=== PATIENT | female | born 1990 | race Hispanic/Latino ===

== ENCOUNTER 2020-08-16 16:06 | Emergency (ER) | payer OTHER, SELFPAY ==
--- NOTE | 2020-08-16 20:58 | EDPHYS ---
Physician Documentation [facility] Name: Astrid Zafar Age: 29 yrs Sex: Female : 1990 Arrival Date: 08/16/2020 Time: 16:11 Bed 13 Private MD: JAYNE Physician Meliton Barksdale HPI: 08/16 20:27 This 29 yrs old Female presents to ER via Ambulatory with complaints of IUD jmm problem. 20:27 The patient presents with pelvic pain. Onset: The symptoms/episode began/occurred jmm gradually, 1 month(s) ago. Modifying factors: The symptoms are alleviated by nothing, the symptoms are aggravated by nothing. Associated signs and symptoms: Pertinent positives: discharge, spotting, Pertinent negatives: fever. Onset: The symptoms/episode began/occurred gradually, 1 month(s) ago. Patient is 1 year post , complains of 1 month of pelvic pain, brown discharge and light spotting. Patient is concerned for infection/iud placement. . 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 - Social history:: Smoking status: unknown. ROS: 20:27 Constitutional: Negative for fever, chills, and weight loss, Cardiovascular: Negative jmm for chest pain, palpitations, and edema, Respiratory: Negative for shortness of breath, cough, wheezing, and pleuritic chest pain. 20:27 Skin: Positive for 20:27 All other systems are negative. Exam: 20:27 Constitutional: This is a well developed, well nourished patient who is awake, alert, jmm and in no acute distress. Head/Face: atraumatic. Eyes: EOMI, no conjunctival erythema appreciated ENT: Moist Mucus Membranes Neck: Trachea midline, Supple Chest/axilla: Normal chest wall appearance and motion. Cardiovascular: Regular rate and rhythm. No edema appreciated Respiratory: Normal respirations, no respiratory distress appreciated Abdomen/GI: Non distended, soft Back: Normal ROM Skin: General appearance color normal MS/ Extremity: Moves all extremities, no obvious deformities appreciated, no edema noted to the lower extremities Neuro: Awake and alert, normal gait Psych: Behavior is normal, Mood is normal, Patient is cooperative and pleasant Vital Signs: 16:27 BP 122 / 72; Pulse 70; Resp 16; Temp 97.8; Pulse Ox 100% on R/A; Pain 3/10; hb MDM: 20:09 Patient medically screened. eliseo Administered Medications: No medications were administered Disposition: 08/17 07:01 Co-signature as Attending Physician, Meliton Barksdale MD I agree with the assessment and tw4 plan of care. Disposition: 08/16/20 20:57 Patient has left against medical advice. - Patients states they are going to Home. - Condition is Stable. Signatures: Dispatcher [employer] EDMS Brijesh Skinner PA PA jmm Baxter, Heather, RN RN Meliton Carr MD MD tw4 Ab Bell RN RN ll1
--- NOTE | 2020-08-16 20:58 | ER ---
Nurse's Notes [facility] Name: Astrid Zafar Age: 29 yrs Sex: Female : 1990 Arrival Date: 08/16/2020 Time: 16:11 Bed 13 Private MD: Diagnosis: Presentation: 08/16 16:27 Chief complaint: Patient states: "I have an IUD and I am worried something is wrong, I hb have been having spotty brown discharge and sometimes red for 1 month." Also c/o pelvic and lower abdominal pain. Coronavirus screen: At this time, the client does not indicate any symptoms associated with coronavirus-19. Ebola Screen: No symptoms or risks identified at this time. Initial Sepsis Screen: Does the patient meet any 2 criteria? No. Patient's initial sepsis screen is negative. Does the patient have a suspected source of infection? No. Patient's initial sepsis screen is negative. Risk Assessment: Do you want to hurt yourself or someone else? Patient reports no desire to harm self or others. Onset of symptoms was July 2020. 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 - Social history:: Smoking status: unknown. Screenin:05 Abuse screen: Denies threats or abuse. Denies injuries from another. Nutritional aj1 screening: No deficits noted. Tuberculosis screening: No symptoms or risk factors identified. 20:55 Fall Risk None identified. ll1 Assessment: 17:44 Reassessment: Pt updated on delay in being seen by a provider. Pt does not appear to be dm5 upset at this time and states that she understands. 20:05 General: Appears in no apparent distress. comfortable, Behavior is calm, cooperative, aj1 appropriate for age. Pain: Complains of pain in right inguinal area and left inguinal area. Neuro: Level of Consciousness is awake, alert, obeys commands, Oriented to person, place, time, situation. Cardiovascular: Patient's skin is warm and dry. Respiratory: Airway is patent Respiratory effort is even, unlabored, Respiratory pattern is regular, symmetrical. GI: No signs and/or symptoms were reported involving the gastrointestinal system. : Reports discharge, from vagina that is bloody, to brown in color with clots. EENT: No signs and/or symptoms were reported regarding the EENT system. Derm: No signs and/or symptoms reported regarding the dermatologic system. Skin is pink, warm \\T\\ dry. normal. Musculoskeletal: No signs and/or symptoms reported regarding the musculoskeletal system. Circulation, motion, and sensation intact. 20:57 Reassessment: Patient and/or family updated on plan of care and expected duration. Pain ll1 level reassessed. Patient is alert, oriented x 3, equal unlabored respirations, skin warm/dry/pink. states she is ready to leave. States she doesn't believe it is an emergency, and that we are too busy. Vital Signs: 16:27 BP 122 / 72; Pulse 70; Resp 16; Temp 97.8; Pulse Ox 100% on R/A; Pain 3/10; hb ED Course: 16:11 Patient arrived in ED. mr 16:29 Triage completed. hb 16:30 Arm band placed on. hb 19:48 Brijesh Skinner PA is PHCP. [facility] 19:48 Meliton Barksdale MD is Attending Physician. [facility] 19:49 Kristen Chiu RN is Primary Nurse. aj1 20:05 Patient has correct armband on for positive identification. Bed in low position. Call aj1 light in reach. Side rails up X 1. 20:05 No provider procedures requiring assistance completed. aj1 21:23 Patient did not have IV access during this emergency room visit. ll1 Administered Medications: No medications were administered Outcome: 20:57 Patient left the ED. ll1 20:57 AMA AMA form signed ll1 20:57 Condition: stable 20:57 Discharge instructions given to patient, Instructed on leaving against medical advice. Released Dr. Braksdale/MARTIN Valdez from any ill effects of leaving against medical advice. Patient verbalized understanding of AMA instructions, No questions about AMA or AMA form before signing. Instructed to return to ER as needed. Demonstrated understanding of instructions, follow-up care. Signatures: Kristen Chiu RN RN aj1 Duyen Frost RN RN dm5 Brijesh Skinner PA PA jmm Rivera Katherine mr Ryder, Magdalena, RN RN hb Ray, Ab, RN RN ll1
[2020-08-16 21:58] VITALS: BP 122/72; TEMP 97.8; O2SAT 100
== END 2020-08-16 20:57 | disposition left against medical advice (07) ==
LOC: ER 16:06
DX: R10.2 Pelvic and perineal pain (principal)
CPT/HCPCS: 99281

== ENCOUNTER 2022-10-10 19:28 | Emergency (ER) | payer SELFPAY ==
[2022-10-10 20:32] LABS: Urine Blood 2+ (Negative); Urine Glucose Negative (Negative); Urine Protein Trace (Negative)
[2022-10-10] MEDS ORDERED: NA CHLORIDE 0.9% 1,000 ML ONE (20:46)
[2022-10-10] MEDS ORDERED: MORPHINE 4 MG/ML SYR ONE (20:46)
[2022-10-10] MEDS ORDERED: ONDANSETRON 4 MG/2 ML VIAL ONE (20:46)
[2022-10-10 20:58] LABS: Absolute Lymphocytes (CBC) 1.7 K/uL (0.7-4.9); Hematocrit 46.8 % (36.0-45.0); Lymphocytes % 9.5 % (15.3-44.8); MCV 90.3 fL (80-100); MPV 7.3 fL (7.6-11.3); RBC Red Blood Cell Count 5.18 M/uL (3.86-4.86)
[2022-10-10 21:19] LABS: Urine Bacteria <20 /HPF (<20); Urine Crystals Unidentified Few /HPF (None Seen); Urine Mucus Slight /HPF (None Seen); Urine WBC Clump Rare /HPF (None Seen)
[2022-10-10 21:25] LABS: Albumin 4.1 g/dL (3.4-5.0); Bilirubin Total 0.7 mg/dL (0.2-1.0); Potassium 3.7 mmol/L (3.5-5.1); Protein, Total 8.6 g/dL (6.4-8.2)
--- NOTE | 2022-10-10 22:42 | RAD REPORT ---
EXAM DESCRIPTION: CT - Abdomen Pelvis W Contrast - 10/10/2022 9:58 pm CLINICAL HISTORY: Abdominal pain COMPARISON: none. TECHNIQUE: Computed axial tomography of the abdomen pelvis was obtained. 100 cc Isovue-300 was admin istered intravenously. Oral contrast was not requested which limits evaluation of bowel and appendix All CT scans are performed using dose optimization technique as appropriate and may include automated exposure control or mA/KV adjustment according to patient size. FINDINGS: The liver, spleen, pancreas, adrenal and kidneys appear unremarkable. There is no evidence of diverticulitis. Retroverted uterus. IUD in place. No adnexal mass. Small to moderate umbilical hernia IMPRESSION: No acute abnormality is displayed.
[2022-10-10] MEDS ORDERED: KETOROLAC 30 MG/ML INJ ONE (23:54)
--- NOTE | 2022-10-11 02:23 | EDPHYS ---
Physician Documentation [facility] Name: Astrid Zafar Age: 31 yrs Sex: Female : 1990 Arrival Date: 10/10/2022 Time: 19:30 Bed 15 Private MD: ED Physician José Miguel Maravilla HPI: 10/10 20:10 This 31 yrs old Female presents to ER via Ambulatory with complaints of cp Abdominal Cramping. 20:10 The patient presents with abdominal pain in the left lower quadrant. cp 20:10 Onset: The symptoms/episode began/occurred 2 day(s) ago. cp 20:10 The symptoms do not radiate. Associated signs and symptoms: Pertinent negatives: cp anorexia, constipation, diarrhea, dysuria, fever, hematuria, vaginal discharge, vomiting, vaginal bleeding. The symptoms are described as crampy. Modifying factors: the symptoms are aggravated by movement. Severity of pain: in the emergency department the pain is unchanged despite home interventions. 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 - Social history:: Smoking status: Patient denies any tobacco usage or history of. Patient/guardian denies using alcohol. ROS: 20:15 Constitutional: Negative for body aches, chills, fever, poor PO intake. cp 20:15 Eyes: Negative for injury, pain, redness, and discharge. cp 20:15 Respiratory: Negative for cough, shortness of breath, wheezing. 20:15 Abdomen/GI: Positive for abdominal pain, nausea, diarrhea, of the left lower quadrant, Negative for vomiting, constipation. 20:15 Back: Negative for radiated pain. cp 20:15 : Negative for urinary symptoms, vaginal bleeding, vaginal discharge. 20:15 Neuro: Negative for altered mental status, dizziness, headache, weakness. 20:15 Skin: Negative for rash. cp 20:15 All other systems are negative. Exam: 20:20 Constitutional: The patient appears in no acute distress, alert, awake, non-toxic, well cp developed, well nourished, uncomfortable. 20:20 Head/Face: Normocephalic, atraumatic. cp 20:20 Eyes: Periorbital structures: appear normal, Conjunctiva: normal, no exudate, no injection, Sclera: no appreciated abnormality, Lids and lashes: appear normal, bilaterally. 20:20 ENT: External ear(s): are unremarkable, Nose: is normal, Mouth: Lips: moist, Oral mucosa: pink and intact, moist, Posterior pharynx: Airway: no evidence of obstruction, patent. 20:20 Chest/axilla: Inspection: normal. 20:20 Cardiovascular: Rate: normal, Rhythm: regular. 20:20 Respiratory: the patient does not display signs of respiratory distress, Respirations: normal, no use of accessory muscles, no retractions, labored breathing, is not present, Breath sounds: are clear throughout, no decreased breath sounds, no stridor, no wheezing. 20:20 Abdomen/GI: Inspection: abdomen appears normal, Bowel sounds: active, all quadrants, Palpation: soft, in all quadrants, moderate abdominal tenderness, in the left lower quadrant, rebound tenderness, is not appreciated, involuntary guarding, is not appreciated. 20:20 Back: CVA tenderness, is absent. 20:20 Skin: cellulitis, is not appreciated, no rash present. 20:20 Neuro: Orientation: to person, place \T\ time. Mentation: is normal, Motor: moves all fours, strength is normal, Sensation: is normal. 10/11 00:55 : Pelvic Exam: External exam: is normal, Speculum exam: no bleeding is noted, os that cp is closed, bimanual exam reveals no cervical motion tenderness, no adnexa tenderness or masses bilaterally, discharge, white, the nurse was present for the exam. Vital Signs: 10/10 20:25 BP 129 / 86; Pulse 79; Resp 18; Temp 98.7(O); Pulse Ox 100% on R/A; Weight 83.46 kg; ld1 Height 5 ft. 6 in. (167.64 cm); Pain 9/10; 22:15 BP 127 / 84; Pulse 67; Resp 17 S; Pulse Ox 100% on R/A; ha1 10/11 00:30 BP 126 / 91; Pulse 65; Resp 15 S; Pulse Ox 100% on R/A; vc1 01:00 BP 121 / 80; Pulse 64; Resp 16 S; Pulse Ox 100% on R/A; vc1 02:00 BP 113 / 85; Pulse 65; Resp 15 S; Pulse Ox 100% on R/A; vc1 03:02 BP 118 / 78; Pulse 67; Resp 16 S; Pulse Ox 100% on R/A; vc1 10/10 20:25 Body Mass Index 29.70 (83.46 kg, 167.64 cm) ld1 MDM: 10/10 19:42 Patient medically screened. cp 20:30 Differential diagnosis: bowel obstruction, diverticulitis, Ectopic , cp Endometriosis, gastritis, non-specific abd pain, Ovarian Torsion, Pelvic Inflammatory Disease, Pyelonephritis, Ureterolithiasis, urinary tract infection. 10/11 02:21 Data reviewed: vital signs, nurses notes, lab test result(s), radiologic studies, CT cp scan, ultrasound. 02:21 Counseling: I had a detailed discussion with the patient and/or guardian regarding: the cp historical points, exam findings, and any diagnostic results supporting the discharge/admit diagnosis, lab results, radiology results, the need for outpatient follow up, a family practitioner, an OB/Gyne specialist, to return to the emergency department if symptoms worsen or persist or if there are any questions or concerns that arise at home. Response to treatment: the patient's symptoms have markedly improved after treatment, and as a result, I will discharge patient. Special discussion: Based on the patient's Hx, exam, and Dx evaluation, there is no indication for emergent surgery or inpatient Tx. It is understood by the patient/guardian that if the Sx's persist or worsen they need to return immediately for re-evaluation. 10/10 19:58 Order name: CBC with Diff; Complete Time: 22:25 cp 10/10 22:25 Interpretation: Normal except: WBC 18.30; RBC 5.18; HGB 16.3; HCT 46.8; PLT 436; MPV cp 7.3; SKYE% 84.2; LYM% 9.5; NEUT A 15.4. 10/10 19:58 Order name: CMP; Complete Time: 22:25 cp 10/10 22:53 Interpretation: NA 134; Reviewed. cp 10/10 19:58 Order name: Lipase; Complete Time: 22:25 cp 10/10 19:58 Order name: Urine Microscopic Only; Complete Time: 22:25 cp 10/10 22:53 Interpretation: Normal except: URBC 5-10; BYST Trace. cp 10/10 20:32 Order name: Urine Dipstick-Ancillary; Complete Time: 22:25 EDMS 10/10 20:34 Order name: Urine --Ancillary (enter results); Complete Time: 22:25 mw2 10/10 19:58 Order name: CT Abd/Pelvis - IV Contrast Only; Complete Time: 22:52 cp 10/10 23:14 Order name: GC (GONORR/CHLAMYDIA) Probe cp 10/10 23:14 Order name: US Transvaginal Study (Probe) cp 10/11 01:34 Order name: Wet Prep; Complete Time: 02:19 cp 10/11 02:19 Interpretation: Reviewed. cp 10/10 19:58 Order name: IV Saline Lock; Complete Time: 20:33 cp 10/10 19:58 Order name: Labs collected and sent; Complete Time: 20:33 cp 10/10 23:14 Order name: Pelvic Exam Setup; Complete Time: 00:56 cp Administered Medications: 10/10 20:50 Drug: NS 0.9% 1000 ml Route: IV; Rate: 1 bolus; Site: left antecubital; ld1 20:50 Drug: Zofran (Ondansetron) 4 mg Route: IVP; Site: left antecubital; ld1 20:50 Drug: morphine 4 mg Route: IVP; Infused Over: 4 mins; Site: left antecubital; ld1 23:59 Drug: Ketorolac 15 mg Route: IVP; Site: right antecubital; ha1 10/11 00:30 Follow up: Response: No adverse reaction; Pain is decreased vc1 02:48 Drug: Zithromax (azithromycin) 1 grams Route: PO; vc1 03:15 Follow up: Response: No adverse reaction vc1 03:00 Drug: Rocephin (cefTRIAXone) 1 grams Route: IV; Rate: calculated rate; Site: right vc1 antecubital; 03:15 Follow up: Response: No adverse reaction; IV Status: Completed infusion; IV Intake: [id number] Disposition Summary: 10/11/22 02:22 Discharge Ordered Location: Home cp Problem: new cp Symptoms: have improved cp Condition: Stable cp Diagnosis - Lower abdominal pain, unspecified cp - Vaginitis, vulvitis and vulvovaginitis in diseases classified elsewhere cp Followup: cp - With: Private Physician - When: 1 week - Reason: Recheck today's complaints Discharge Instructions: - Discharge Summary Sheet cp - Abdominal Pain, Adult cp Forms: - Medication Reconciliation Form cp - Thank You Letter cp - Antibiotic Education cp - Prescription Opioid Use cp Prescriptions: - Doxycycline Hyclate 100 mg Oral Tablet - take 1 tablet by ORAL route every 12 hours; 20 tablet; Refills: 0, Product cp Selection Permitted - Metronidazole 500 mg Oral Tablet - take 1 tablet by ORAL route every 8 hours; 30 tablet; Refills: 0, Product cp Selection Permitted - Diclofenac Sodium 75 mg Oral tablet,delayed release (DR/EC) - take 1 tablet by ORAL route 2 times per day; 20 tablet; Refills: 0, Product cp Selection Permitted Signatures: Dispatcher [employer] EDMS José Miguel Sanchez PA PA cp Dibbern, Lauren RN RN ld1 Trinidad Harmon RN RN vc1 Nicki Beard RN RN ha1
--- NOTE | 2022-10-11 02:23 | ER ---
Nurse's Notes [facility] Name: Astrid Zafar Age: 31 yrs Sex: Female : 1990 Arrival Date: 10/10/2022 Time: 19:30 Bed 15 Private MD: Diagnosis: Lower abdominal pain, unspecified;Vaginitis, vulvitis and vulvovaginitis in diseases classified elsewhere Presentation: 10/10 20:25 Chief complaint: Patient states: ABD pain X 2 days. ld1 20:25 Coronavirus screen: At this time, the client does not indicate any symptoms associated ld1 with coronavirus-19. Ebola Screen: No symptoms or risks identified at this time. Initial Sepsis Screen: Does the patient meet any 2 criteria? No. Patient's initial sepsis screen is negative. Does the patient have a suspected source of infection? No. Patient's initial sepsis screen is negative. Risk Assessment: Do you want to hurt yourself or someone else? Patient reports no desire to harm self or others. Onset of symptoms was October 10, 2022. 20:25 Method Of Arrival: Ambulatory ld1 20:25 Acuity: GENESIS 3 ld1 Triage Assessment: 20:52 General: Appears in no apparent distress. uncomfortable, Behavior is calm, cooperative, ld1 appropriate for age. Pain: Complains of pain in abdomen Pain does not radiate. Pain currently is 9 out of 10 on a pain scale. Quality of pain is described as throbbing, Pain began 2-3 days ago. Is continuous. EENT: No signs and/or symptoms were reported regarding the EENT system. Neuro: Level of Consciousness is awake, alert, obeys commands, Oriented to person, place, time, situation. Cardiovascular: Capillary refill < 3 seconds Patient's skin is warm and dry. Respiratory: Airway is patent Respiratory effort is even, unlabored. GI: Abdomen is round non-distended, Reports lower abdominal pain, upper abdominal pain, nausea, vomiting. : No signs and/or symptoms were reported regarding the genitourinary system. Derm: No signs and/or symptoms reported regarding the dermatologic system. Musculoskeletal: No signs and/or symptoms reported regarding the musculoskeletal system. 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 - Social history:: Smoking status: Patient denies any tobacco usage or history of. Patient/guardian denies using alcohol. Screenin:53 [facility] ED Fall Risk Assessment (Adult) History of falling in the last 3 months, ld1 including since admission No falls in past 3 months (0 pts). Abuse screen: Denies threats or abuse. Denies injuries from another. Nutritional screening: No deficits noted. Tuberculosis screening: No symptoms or risk factors identified. Assessment: 20:53 Reassessment: See triage assessmen. ld1 22:00 General: Appears comfortable, Behavior is calm, cooperative. Pain: Denies pain. Neuro: ha1 Level of Consciousness is awake, alert, obeys commands, Oriented to person, place, time, situation. Cardiovascular: Patient's skin is warm and dry. Respiratory: Airway is patent Trachea midline Respiratory effort is even, unlabored, Respiratory pattern is regular, symmetrical. GI: Abdomen is flat, non-distended, Bowel sounds present X 4 quads. Abd is soft and non tender. : No signs and/or symptoms were reported regarding the genitourinary system. EENT: No deficits noted. No signs and/or symptoms were reported regarding the EENT system. Derm: Skin is pink, warm \T\ dry. Musculoskeletal: Circulation, motion, and sensation intact. Range of motion: intact in all extremities. 23:00 Reassessment: Patient and/or family updated on plan of care and expected duration. Pain vc1 level reassessed. Patient is alert, oriented x 3, equal unlabored respirations, skin warm/dry/pink. 10/11 00:00 Reassessment: Patient and/or family updated on plan of care and expected duration. Pain vc1 level reassessed. Patient is alert, oriented x 3, equal unlabored respirations, skin warm/dry/pink. 01:00 Reassessment: Patient and/or family updated on plan of care and expected duration. Pain vc1 level reassessed. Patient is alert, oriented x 3, equal unlabored respirations, skin warm/dry/pink. 02:00 Reassessment: Patient and/or family updated on plan of care and expected duration. Pain vc1 level reassessed. Patient is alert, oriented x 3, equal unlabored respirations, skin warm/dry/pink. awaiting on lab results. 03:02 Reassessment: Patient and/or family updated on plan of care and expected duration. Pain vc1 level reassessed. Patient is alert, oriented x 3, equal unlabored respirations, skin warm/dry/pink. Vital Signs: 10/10 20:25 BP 129 / 86; Pulse 79; Resp 18; Temp 98.7(O); Pulse Ox 100% on R/A; Weight 83.46 kg; ld1 Height 5 ft. 6 in. (167.64 cm); Pain 9/10; 22:15 BP 127 / 84; Pulse 67; Resp 17 S; Pulse Ox 100% on R/A; ha1 10/11 00:30 BP 126 / 91; Pulse 65; Resp 15 S; Pulse Ox 100% on R/A; vc1 01:00 BP 121 / 80; Pulse 64; Resp 16 S; Pulse Ox 100% on R/A; vc1 02:00 BP 113 / 85; Pulse 65; Resp 15 S; Pulse Ox 100% on R/A; vc1 03:02 BP 118 / 78; Pulse 67; Resp 16 S; Pulse Ox 100% on R/A; vc1 10/10 20:25 Body Mass Index 29.70 (83.46 kg, 167.64 cm) ld1 ED Course: 10/10 19:30 Patient arrived in ED. jj6 19:42 José Miguel Sanchez PA is PHCP. cp 19:42 José Miguel Maravilla MD is Attending Physician. cp 19:50 Kim Chacon RN is Primary Nurse. ld1 20:33 Urine Microscopic Only Sent. ld1 20:52 Triage completed. ld1 20:52 Arm band placed on right wrist. ld1 20:53 No provider procedures requiring assistance completed. Inserted saline lock: 20 gauge ld1 in right antecubital area, using aseptic technique. Blood collected. 20:53 Patient has correct armband on for positive identification. Placed in gown. Bed in low ld1 position. Call light in reach. Side rails up X2. Pulse ox on. NIBP on. Door closed. Noise minimized. Warm blanket given. 22:00 CT Abd/Pelvis - IV Contrast Only In Process Unspecified. EDMS 10/11 00:20 US Transvaginal Study (Probe) In Process Unspecified. EDMS 00:56 GC (GONORR/CHLAMYDIA) Probe Sent. vc1 03:16 IV discontinued, intact, bleeding controlled, No redness/swelling at site. Pressure vc1 dressing applied. Administered Medications: 10/10 20:50 Drug: NS 0.9% 1000 ml Route: IV; Rate: 1 bolus; Site: left antecubital; ld1 20:50 Drug: Zofran (Ondansetron) 4 mg Route: IVP; Site: left antecubital; ld1 20:50 Drug: morphine 4 mg Route: IVP; Infused Over: 4 mins; Site: left antecubital; ld1 23:59 Drug: Ketorolac 15 mg Route: IVP; Site: right antecubital; ha1 10/11 00:30 Follow up: Response: No adverse reaction; Pain is decreased vc1 02:48 Drug: Zithromax (azithromycin) 1 grams Route: PO; vc1 03:15 Follow up: Response: No adverse reaction vc1 03:00 Drug: Rocephin (cefTRIAXone) 1 grams Route: IV; Rate: calculated rate; Site: right vc1 antecubital; 03:15 Follow up: Response: No adverse reaction; IV Status: Completed infusion; IV Intake: [id number] Medication: 10/10 20:53 VIS not applicable for this client. ld1 Intake: 10/11 03:15 IV: 50ml; Total: 50ml. vc1 Outcome: 02:22 Discharge ordered by . hernesto 03:15 Discharged to home ambulatory. vc1 03:15 Condition: stable 03:15 Discharge instructions given to patient, Instructed on discharge instructions, follow up and referral plans. medication usage, Demonstrated understanding of instructions, follow-up care, medications, Prescriptions given X 3. 03:16 Patient left the ED. vc1 Signatures: Dispatcher [employer] EDTN José Miguel Sanchez PA PA cp Dibbern, Lauren RN RN ld1 Floridalma Call jj6 Trinidad Harmon RN RN vc1 Nicki Beard RN RN 1
[2022-10-11] MEDS ORDERED: AZITHROMYCIN 250 MG TAB ONE (02:50)
[2022-10-11] MEDS ORDERED: NA CHLORIDE 0.9% 50 ML IV ONE (02:51)
[2022-10-11] MEDS ORDERED: CEFTRIAXONE 1000 MG/VIAL ONE (02:51)
[2022-10-11 03:20] VITALS: TEMP 98.7; O2SAT 100
[2022-10-11 03:26] VITALS: BP 118/78
--- NOTE | 2022-10-11 14:58 | RAD REPORT ---
EXAM DESCRIPTION: US - Transvaginal Study Probe - 10/11/2022 12:18 am CLINICAL HISTORY: 31 years Female lower abdomen pain COMPARISON: No prior exams provided for comparison. TECHNIQUE: Real-time and connell scale transvaginal sonographic imaging was performed to evaluate the p duane. FINDINGS: The uterus measures 8.3 x 4.8 x 5.4 cm while the endometrial stripe measures 7 mm in thick ness. An intrauterine device appears to be in good position. The right ovary measures 2.8 x 3.1 x 2.5 cm while the left ovary measures 2.7 x 2.1 x 2.0 cm. Both ov marcelo contain small follicles and demonstrate normal vascularity. There is trace free fluid in the cul-de-sac. IMPRESSION: Normal pelvic ultrasound. No ovarian mass or torsion. Intrauterine device in good position. Trace free fluid in the cul-de-sac likely physiologic. Electronically signed by: Doretha Cortez MD 10/11/2022 12:39 AM [employer] Due to temporary technical issues with the PACS/Fluency reporting system, reports are being signed by the in house radiologists without review as a courtesy to insure prompt reporting. The interpreting radiologist is fully responsible for the content of the report.
[2022-10-13 21:26] LABS: C.trachomatis RNA,TMA Not Detected (Not Detected)
== END 2022-10-11 03:16 | disposition home or self-care (01) ==
LOC: ER 19:28
DX: N77.1 Vaginitis, vulvitis and vulvovaginitis in diseases classified elsewhere (principal)
CPT/HCPCS: 36415; 74177; 76830; 80053; 81003; 81015; 81025; 83690; 85025; 87210; 87490; 87590; 99284; J2405; J7030; Q0144; Q9967

== ENCOUNTER 2022-11-22 03:30 | Emergency (ER) | payer SELFPAY ==
--- OUTSIDE RECORDS SUMMARY | 2022-11-22 03:34 | XMS REPORT | Continuity of Care Document ---
:1990 Author Organization [facility] t Address [address] [place] [address] Care Team Providers Name Role Phone Sherrie Alegria Primary Care Physician SHERRIE AGUILAR Attending Clinician Unavailable Sherrie Alegria Attending Clinician [phone] Doctor Unassigned, [place] Attending Clinician Unavailable Tiff Castillo RN Attending Clinician Unavailable NETTIE HARMAN Attending Clinician Unavailable Ezequiel DOLL Attending Clinician Unavailable Ezequiel Ortiz Attending Clinician TERESSA MOSES Attending Clinician Unavailable [facility] Attending Clinician Unavailable Teressa Cruz Attending Clinician Nettie German Attending Clinician Lab, [place] Attending Clinician Unavailable Payers Payer Name Policy Type Policy Number Effective Date Expiration Date Sourav albright [facility] [id number] 2020 00:00:00 Problems Condition Condition Condition Status Onset Resolution Last Treating Co mments Source Name Details Category Date Date Treatment Clinician Date Other Other Disease Active 2021-10 Univers general general 2-09 [place] of [place] advice 00 Me dical for for Branch contracept contracept carmen carmen management management Papanicola Papanicola Disease Active Overview : Univers ou smear ou smear 8-11 Formattin ity of of cervix of cervix 00:00: g of [place] with low with low 00 note Medica l grade grade might be Branch squamous squamous different intraepith intraepith from the julianna levine original. 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 Encounter Encounter Disease Active Uni vers for IUD for IUD 04-29 ity of removal removal 00:00: [place] 00 Medical Branch Dysuria Dysuria Disease Active Univers 04-29 ity of 00:00: [place] 00 Medical Branch IUD IUD Disease Active Univers (intrauter (intrauter 04-29 it y of ine ine 00:00: [place] device) in device) in [address] Branch Encounter Encounter Disease Active Uni vers for for 04-29 ity of surveillan surve[place] ce of ce of Medical other other Branch contracept contracept carmen carmen IUD IUD Disease Active Univers (intrauter (intrauter 04-29 it y of ine ine 00:00: [place] device) in device) in [address] Branch Allergies, Adverse Reactions, Alerts Allergy Allergy Status Severity Reaction(s) Onset Inactive Treating Comm ents Source Name Type Date Date Clinician NO KNOWN Drug Active Univers ALLERGIE Class ity of S [facility] Social History Social Habit Start Date Stop Date Quantity Comments Source History [facility] o f Alcohol Frequency [facility] edical Branch History [facility] o f Alcohol Std [place] Medical Drinks Branch History [facility] o f Alcohol Binge [place] Medic al Branch Exposure to 2022-10-21 2022-10-31 Not sure University of SARS-CoV-2 00:00:00 10:40:00 [facility] (event) Branch Tobacco use and 2022-09-16 2022-09-16 Smokeless tobacco Un iversity of exposure 00:00:00 00:00:00 non-user [facility] Alcohol intake 2022-09-16 2022-09-16 Current drinker Unive rsity of 00:00:00 00:00:00 of alcohol [facility] (finding) Branch Tobacco Comment 2022-09-16 2022-09-16 vapes Universit y of 00:00:00 00:00:00 [facility] Alcohol Comment 2021-04-29 2021-04-29 occasional Universit y of 00:00:00 00:00:00 [facility] Sex Ass[birth year] At [birth year] Universit y of 00:00:00 00:00:00 [facility] Smoking Status Start Date Stop Date Source Never smoked tobacco [facility] Medications Ordered Filled Start Stop Current Ordering Indication Dosage Frequency Signature Comments Components Source Medication Medication Date Date Medication? Clinician (SIG) Name Name etonogestre 2022- No [id number] 68mg Univers L 10-31 ity of (NEXPLANON) 22:30: 21:44 [place] implant 68 00 :00 Medical mg Branch etonogestre 2022- No [id number] 68mg 68 mg, Univers L 10-31 Subdermal, ity of (NEXPLANON) 22:30: 21:44 ONCE NOW, [place] implant 68 00 :00 1 dose, On Med ical mg [facility] 10/31/22 at 1630, Routine
Use approved by: PRODUCTION BROACHER etonogestre 2022- No [id number] 68mg Univers L 10-31 ity of (NEXPLANON) 22:30: 21:44 [place] implant 68 00 :00 Medical mg Branch etonogestre 2022- No [id number] 68mg 68 mg, Univers L 10-31 Subdermal, ity of (NEXPLANON) 22:30: 21:44 ONCE NOW, [place] implant 68 00 :00 1 dose, On Med ical mg [facility] 10/31/22 at 1630, Routine
Use approved by: PRODUCTION BROACHER No known No No known Unive rs medications 10-31 medication it y of 15:46: s [address] No known No No known Unive rs medications 10-31 medication it y of 15:46: s [address] No known No No known Unive rs medications 10-17 medication it y of 09:06: s [address] No known 0 No No known Unive rs medications 10-17 medication it y of 09:06: s [address] No known 0 No No known Unive rs medications 1-09 medication it y of 09:06: [address] No known No No known Unive rs medications 1-09 medication it y of 09:06: [address] No known 2021-10 No No known Unive rs medications 2-09 medication it y of 14:15: [address] No known 2021- No No known Unive rs medications 2-09 medication it y of 14:15: [address] No known 2021-10 No No known Unive rs medications 2-09 medication it y of 14:15: [address] No known 2021-10 No No known Unive rs medications 2-09 medication it y of 14:15: [address] ketorolac 2021- No 15mg 15 mg, Unive rs (TORADOL) 03-09 Intramuscu ity of injection 03:15: 02:23 lar, ONCE, [place] 15 mg 00 :00 1 dose, On [facility] Branch 03/08/22 at 2215, IGNACIO
Fa culty member approving Restricted medication : Ezequiel DOLL ibuprofen Yes [id number] 600mg Take 1 Univers 600 mg 5-31 tablet by ity of tablet 00:00: mouth [place] 00 every 6 Medical (six) Branch hours as needed for Pain (scale 4-6). ibuprofen Yes [id number] 600mg Take 1 Univers 600 mg 5-31 tablet by ity of tablet 00:00: mouth [place] 00 every 6 Medical (six) Branch hours as needed for Pain (scale 4-6). ibuprofen 2021- No [id number] 600mg Take 1 Univers 600 mg 5-31 12-09 tablet by ity of tablet 00:00: 00:00 mouth [place] 00 :00 every 6 Medical (six) Branch hours as needed for Pain (scale 4-6). ibuprofen 2021- No [id number] 600mg Take 1 Univers 600 mg 5-31 12-09 tablet by ity of tablet 00:00: 00:00 mouth [place] 00 :00 every 6 Medical (six) Branch hours as needed for Pain (scale 4-6). ibuprofen 2021- No [id number] 600mg Take 1 Univers 600 mg 5-31 12- tablet by ity of tablet 00:00: 00:00 mouth [place] 00 :00 every 6 Medical (six) Branch hours as needed for Pain (scale 4-6). ampicillin 2020- No [id number] 500mg Take 1 Univers 500 mg 05-31 capsule by ity of capsule 00:00: 04:59 mouth [place] 00 :00 every 6 Medical (six) Branch hours for 10 days. ampicillin 2020- No [id number] 500mg Take 1 Univers 500 mg 05-31 capsule by ity of capsule 00:00: 04:59 mouth [place] 00 :00 every 6 Medical (six) Branch hours for 10 days. ampicillin 2020- No [id number] 500mg Take 1 Univers 500 mg 05-31 capsule by ity of capsule 00:00: 04:59 mouth [place] 00 :00 every 6 Medical (six) Branch hours for 10 days. terconazole Yes [id number] 1{appli Insert 1 Univers 0.8 % 8-11 cator} Applicator ity of vaginal 00:00: into [place] cream 00 vagina at Medical bedtime. Branch terconazole 2020- Yes [id number] 1{appli Insert 1 Univers 0.8 % 8-11 cator} Applicator ity of vaginal 00:00: into [place] cream 00 vagina at Medical bedtime. Branch terconazole 2020- Yes [id number] 1{appli Insert 1 Univers 0.8 % 8-11 cator} Applicator ity of vaginal 00:00: into [place] cream 00 vagina at Medical bedtime. Branch terconazole 2020-0 Yes [id number] 1{appli Insert 1 Univers 0.8 % 8-11 cator} Applicator ity of vaginal 00:00: into [place] cream 00 vagina at Medical bedtime. Branch terconazole 2020-0 Yes [id number] 1{appli Insert 1 Univers 0.8 % 8-11 cator} Applicator ity of vaginal 00:00: into [place] cream 00 vagina at Medical bedtime. Branch terconazole 2020-0 Yes [id number] 1{appli Insert 1 Univers 0.8 % 8-11 cator} Applicator ity of vaginal 00:00: into [place] cream 00 vagina at Medical bedtime. Branch terconazole Yes [id number] 1{appli Insert 1 Univers 0.8 % 8-11 cator} Applicator ity of vaginal 00:00: into [place] cream 00 vagina at Medical bedtime. Branch terconazole Yes [id number] 1{appli Insert 1 Univers 0.8 % 8-11 cator} Applicator ity of vaginal 00:00: into [place] cream 00 vagina at Medical bedtime. Branch terconazole Yes [id number] 1{appli Insert 1 Univers 0.8 % 8-11 cator} Applicator ity of vaginal 00:00: into [place] cream 00 vagina at Medical bedtime. Branch terconazole Yes [id number] 1{appli Insert 1 Univers 0.8 % 8-11 cator} Applicator ity of vaginal 00:00: into [place] cream 00 vagina at Medical bedtime. Branch terconazole Yes [id number] 1{appli Insert 1 Univers 0.8 % 8-11 cator} Applicator ity of vaginal 00:00: into [place] cream 00 vagina at Medical bedtime. Branch terconazole Yes [id number] 1{appli Insert 1 Univers 0.8 % 8-11 cator} Applicator ity of vaginal 00:00: into [place] cream 00 vagina at Medical bedtime. Branch terconazole Yes [id number] 1{appli Insert 1 Univers 0.8 % 8-11 cator} Applicator ity of vaginal 00:00: into [place] cream 00 vagina at Medical bedtime. Branch terconazole Yes [id number] 1{appli Insert 1 Univers 0.8 % 8-11 cator} Applicator ity of vaginal 00:00: into [place] cream 00 vagina at Medical bedtime. Branch terconazole 2020-2021- No [id number] 1{appli Insert 1 Univers 0.8 % 8-11 12-09 cator} Applicator ity o f vaginal 00:00: 00:00 into [place] cream 00 :00 vagina at Medical bedtime. Branch terconazole 2020-2021- No [id number] 1{appli Insert 1 Univers 0.8 % 8-11 12-09 cator} Applicator ity o f vaginal 00:00: 00:00 into [place] cream 00 :00 vagina at Medical bedtime. Branch terconazole 2021- No [id number] 1{appli Insert 1 Univers 0.8 % 05-19 cator} Applicator ity o f vaginal 00:00: 00:00 into [place] cream 00 :00 vagina at Medical bedtime. Branch No known No [facility] No known No Univers medications [facility] Vital Signs Vital Name Observation Time Observation Value Comments Source Systolic blood 2022-10-31 16:40:00 119 mm[Hg] Univer sity of [facility] Diastolic blood 2022-10-31 16:40:00 81 mm[Hg] Unive rsity of [facility] Heart rate 2022-10-31 16:40:00 76 /min Universi ty [facility] Body temperature 2022-10-31 16:40:00 36.67 [facility]y [facility] Respiratory rate 2022-10-31 16:40:00 18 /min Univ ersity [facility] Body weight 2022-10-31 16:40:00 63.504 kg Universi ty [facility] BMI 2022-10-31 16:40:00 26.45 kg/m2 Universi ty [facility] Systolic blood 2022-10-17 14:51:00 119 mm[Hg] Univer sity of [facility] Diastolic blood 2022-10-17 14:51:00 71 mm[Hg] Unive rsity of [facility] Heart rate 2022-10-17 14:51:00 89 /min Universi ty [facility] Body temperature 2022-10-17 14:51:00 37.17 Rosy Univ ersity [facility] Respiratory rate 2022-10-17 14:51:00 20 /min Univ ersity [facility] Body height 2022-10-17 14:51:00 154.9 cm Universi ty [facility] Body weight 2022-10-17 14:51:00 63.64 kg Universi ty [facility] BMI 2022-10-17 14:51:00 26.51 kg/m2 Universi ty of [place] [facility] Systolic blood 2022-09-16 20:01:00 133 mm[Hg] Univer sity of pressure [place] [facility] Diastolic blood 2022-09-16 20:01:00 84 mm[Hg] Unive rsity of pressure [place] [facility] Heart rate 2022-09-16 20:01:00 81 /min Universi ty of [place] [facility] Body temperature 2022-09-16 20:01:00 36.72 Rosy Univ ersity of [place] [facility] Respiratory rate 2022-09-16 20:01:00 18 /min Univ ersity of [place] [facility] Body height 2022-09-16 20:01:00 154.9 cm Universi ty of [place] [facility] Body weight 2022-09-16 20:01:00 64.581 kg Universi ty of [place] [facility] BMI 2022-09-16 20:01:00 26.90 kg/m2 Universi ty of [place] [facility] Systolic blood 2022-03-09 02:27:24 127 mm[Hg] Univer sity of pressure [place] [facility] Diastolic blood 2022-03-09 02:27:24 90 mm[Hg] Unive rsity of pressure [place] [facility] Heart rate 2022-03-09 02:27:24 85 /min Universi ty of [place] [facility] Body temperature 2022-03-09 02:27:24 36.83 Rosy Univ ersity of [place] [facility] Respiratory rate 2022-03-09 02:27:24 18 /min Univ ersity of [place] [facility] Body height 2022-03-09 01:27:00 154.9 cm Universi ty of [place] [facility] Body weight 2022-03-09 01:27:00 64.864 kg Universi ty of [place] [facility] BMI 2022-03-09 01:27:00 27.02 kg/m2 Universi ty of [place] [facility] Oxygen saturation in 2022-03-09 01:27:00 100 /min University Arterial blood by [facility] Pulse oximetry Branch Systolic blood 2022-03-09 00:51:00 119 mm[Hg] Univer sity of pressure [place] [facility] Diastolic blood 2022-03-09 00:51:00 77 mm[Hg] Unive rsity of pressure [place] [facility] Heart rate 2022-03-09 00:51:00 82 /min Universi ty of [place] [facility] Body temperature 2022-03-09 00:51:[address] [facility] ersity [facility] Respiratory rate 2022-03-09 00:51:00 19 /min Univ ersity of [facility] Body height 2022-03-09 00:51:00 154.9 cm Universi ty of [facility] Body weight 2022-03-09 00:51:00 64.864 kg Universi ty of [facility] BMI 2022-03-09 00:51:00 27.02 kg/m2 Universi ty of [facility] Oxygen saturation in 2022-03-09 00:51:00 100 /min [facility] Arterial blood by [facility] Pulse oximetry Branch Systolic blood 2021-04-29 12:59:00 108 mm[Hg] Univer sity of [facility] Diastolic blood 2021-04-29 12:59:00 73 mm[Hg] Unive [facility] of [facility] Heart rate 2021-04-29 12:59:00 80 /min Universi ty of [facility] Body temperature 2021-04-29 12:59:[address] [facility] ersity [facility] Respiratory rate 2021-04-29 12:59:00 16 /min [facility] ersity of [facility] Body height 2021-04-29 12:59:00 157.5 cm Universi ty of [facility] Body weight 2021-04-29 12:59:00 60.963 kg Universi ty of [facility] BMI 2021-04-29 12:59:00 24.58 kg/m2 Universi ty of [facility] Procedures Procedure Date / Time Performed Performing Clinician [facility] e DISCLOSURE AND CONSENT 2022-10-31 06:01:00 Doctor Unassigned, No University [facility] MEDICAL & SURGICAL Name Medical [facility] h PROCEDURES - FEMALM ASSIGNMENT OF BENEFITS 2022-09-16 19:50:12 Doctor Unassigned, No [facility] Encounters Start End Encounter Admission Attending Care Care Encounter Source Date/Time Date/Time Type Type Clinicians Facility Department ID 2022-11-25 2022-11-25 Outpatient R LAUREN, [facility] [id number] [facility] 13:30:00 13:30:00 SHERRIE keenan [facility] 2022-11-18 2022-11-18 Telephone [place], [facility] 1.2.840.114 [id number] Univers 00:00:00 00:00:00 Sherrie C [employer]ODUCTION BROACHER [id number] ity of [facility] [id number] Hernán as MATERNAL [phone] [facility] & CHILD [address] [place] [address] 2022-11-15 2022-11-15 [facility] [id number] Univers 13:15:00 13:15:00 SHERRIE avila o [facility] 2022-11-10 2022-11-10 Telephone [facility] [id number] Univers 00:00:00 00:00:00 Sherrie C [employer]ODUCTION BROACHER [id number] ity of [facility] [id number] Hernán as MATERNAL [id number] [address] 2022-11-02 2022-11-02 Telephone [facility] [id number] Univers 00:00:00 00:00:00 Sherrie PRODUCTION BROACHER [id number] ity of [facility] [id number] Hernán as MATERNAL [id number] [address] 2022-10-31 2022-10-31 Office [facility] [id number] Univers 15:00:00 15:00:00 Visit Sherrie C [employer]ODUCTION BROACHER [id number] ity of [facility] [id number] Hernán as MATERNAL [id number] [facility] & CHILD [address] [place] [address] 2022-10-31 2022-10-31 [facility] [id number] Univers 15:00:00 10:56:14 SHERRIE mcclure shlomo [facility] 2022-10-31 2022-10-31 Orders Doctor SOARES 1.2.840.114 [id number] Univers 00:00:00 00:00:00 Only Unassigned, LYNETTE [id number] ity of [place] [id number] Hernán as [id number] [facility] [address] 2022-10-21 2022-10-21 Telephone [facility] [id number] Univers 00:00:00 00:00:00 Sherrie Val [employer] [id number] ity of [facility] [id number] Hernán as MATERNAL [id number] [facility] & CHILD [address] [place] [address] 2022-10-21 2022-10-21 Nurse Benjamin SOARES [id number] [id number] Univers 00:00:00 00:00:00 Triage dTiff [id number] ity of [place] [id number] Hernán as [phone] [facility] [address] 2022-10-17 2022-10-17 [facility] [id number] Univers 08:30:00 09:03:45 SHERRIE avila o f [facility] 2022-10-17 2022-10-17 Office [facility] [id number] Univers 08:30:00 09:03:45 Visit Sherrie Neal [employer] [id number] ity of [place] [id number] Hernán as MATERNAL [id number] [facility] & [address] 2022-10-17 2022-10-17 Outpatient R LAUREN, [facility] [id number] Univers 08:30:00 08:30:00 SHERRIE ity o f [facility] 2022-10-13 2022-10-13 Telephone [facility] [id number] [id number] Univers 00:00:00 00:00:00 Sherrie Val [employer] BRO[employer]ER [id number] ity of [place] [id number] Hernán as MATERNAL [id number] [facility] & CHILD [address] [place] [address] 2022-10-12 2022-10-12 Telephone [facility] 1.2.840.114 [id number] Univers 00:00:00 00:00:00 Sherrie C PRODUCTION BROACHER [id number] ity of [facility] [id number] Hernán as MATERNAL [id number] [facility] & CHILD [address] [place] [address] 2022-10-11 2022-10-11 Telephone [facility] 1.2.840.114 [id number] Univers 00:00:00 00:00:00 Sherrie C PRODUCTION BROACHER [id number] ity of [facility] [id number] Hernán as MATERNAL [id number] [facility] & CHILD [address] [place] [address] 2022-09-20 2022-09-20 Telephone [facility] 1.2.840.114 [id number] Univers 00:00:00 00:00:00 Sherrie C PRODUCTION BROACHER [id number] ity of [facility] [id number] Hernán as MATERNAL [id number] [address] 2022-09-16 2022-09-16 [facility] [id number] [facility] 13:45:00 14:59:34 SHERRIE keenan [facility] 2022-09-16 2022-09-16 Office [facility] [id number] [facility] 13:45:00 14:59:34 Visit [facility] PRODUCTION BROACHER [id number] ity of [facility] [id number] Hernán as MATERNAL [id number] [facility] CHILD [address] [place] [address] 2022-09-16 2022-09-16 Orders Doctor SOARES 1.2.840.114 [id number] Univers 00:00:00 00:00:00 Only Unassigned, LYNETTE [id number] [place] [facility] [id number] Hernán as [id number] [address] 2022-08-08 2022-08-08 Outpatient R KIMANI [facility] [id number] Univers 09:00:00 09:00:00 NETTIE keenan [facility] 2022-03-08 2022-03-08 Emergency X Ezequiel DOLL [facility] ERT [id number] Univers 20:30:00 21:37:00 ity of [facility] 2022-03-08 2022-03-08 Emergency Ezequiel Doll [facility] 1.2.840.114 [id number] Univers 20:30:00 21:37:00 Janna CRANDALL [id number] i ty of [place] [id number] [place] [facility] [id number] [address] 2022-03-08 2022-03-08 Outpatient R AURELIA [facility] [id number] Univers 19:15:00 19:50:45 TERESSA keenan [facility] 2022-03-08 2022-03-08 Nurse Nurse, Jhon[facility] 1.2.840.114 [id number] Univers 19:15:00 19:50:45 [facility] [id number] ity [facility] [id number] Hernán as CHERYL?BLEA [id number] [address] MEDICAL OFFICE BUILDING 2021-10-15 2021-10-15 Telephone [facility] [id number] Univers 00:00:00 00:00:00 Rostheronnda R PRODUCTION BROACHER [id number] ity of [facility] [id number] Hernán as MATERNAL [id number] Med ical & CHILD [address] [place] [address] 2021-05-31 2021-05-31 Telephone [facility] [id number] Univers 00:00:00 00:00:00 Roshunda R [employer]ODUCTION BROACHER [id number] ity of [facility] [id number] Hernán as MATERNAL [id number] [facility] ical & CHILD [address] [place] [address] 2021-05-31 2021-05-31 Telephone [facility] [id number] Univers 00:00:00 00:00:00 Roshunda R [employer]ODUCTION BROACHER [id number] ity of [facility] [id number] Hernán as MATERNAL [id number] [facility] CHILD [address] [place] [address] 2021-05-25 2021-05-25 Remanufacturing Technician Lab, Ang[facility] 1.2.840. [id number] [facility] 13:07:25 14:08:05 Visit HarmanNettie [employer]ODUCTION BROACHER [id number] ity of [facility] [id number] Hernán as MATERNAL [id number] [facility] & CHILD [address] [place] [address] 2021-05-25 2021-05-25 Outpatient R KIMANI [facility] [id number] Univers 13:00:00 13:00:00 NETTIE ity o f [facility] 2021-05-24 2021-05-24 [facility] [id number] Univers 00:00:00 00:00:00 Nettie R PRODUCTION BROACHER [id number] ity of [facility] [id number] Hernán as MATERNAL [id number] [facility] CHILD [address] [place] [address] 2021-05-19 2021-05-19 [facility]phone [facility] [id number] Univers 00:00:00 00:00:00 Nettie R PRODUCTION BROACHER [id number] ity of [facility] [id number] Hernán as MATERNAL [phone] [facility] & CHILD [address] [place] [address] 2021-05-03 2021-05-03 [facility] [id number] Univers 00:00:00 00:00:00 Haleyyanicka R [employer]ODUCTION BROACHER [id number] ity of [facility] [id number] Hernán as MATERNAL [phone] [facility] & CHILD [address] [place] [address] 2021-04-29 2021-04-29 Office [facility] 1.2.840.114 [id number] Univers 07:52:14 08:34:41 Visit Nettie R [employer]ODUCTION BROACHER [id number] ity of [facility] [id number] Hernán as MATERNAL [phone] [facility] ical & CHILD [address] [place] [address] 2021-04-29 2021-04-29 Outpatient R KIMANI [facility] [id number] [employer] 07:45:00 07:45:00 NETTIE keenan [facility] Results This patient has no known results.
[2022-11-22] MEDS ORDERED: LIDOCAINE VISCOUS 2% SOLN 15 ML UDC ONE (04:00)
--- NOTE | 2022-11-22 04:47 | ER ---
Nurse's Notes [facility] Name: Astrid Zafar Age: 32 yrs Sex: Female : 1990 Arrival Date: 11/22/2022 Time: 03:32 Bed 12 Private MD: Diagnosis: Foreign body in right ear-insect partial removal Presentation: 11/22 03:44 Chief complaint: Patient states: right ear pain reports bowling in [place] poured alcohol in kl ear with some relief. Coronavirus screen: Vaccine status: Patient reports being unvaccinated. Ebola Screen: Patient negative for fever greater than or equal to 101.5 degrees Fahrenheit, and additional compatible Ebola Virus Disease symptoms. Initial Sepsis Screen: Does the patient meet any 2 criteria? No. Patient's initial sepsis screen is negative. Does the patient have a suspected source of infection? No. Patient's initial sepsis screen is negative. Risk Assessment: Do you want to hurt yourself or someone else? Patient reports no desire to harm self or others. 03:44 Method Of Arrival: Ambulatory kl 03:44 Acuity: GENESIS 4 kl 05:03 Onset of symptoms was November 22, 2022 at 03:00. Triage Assessment: 03:47 General: Appears uncomfortable, Behavior is calm, cooperative. Pain: Complains of pain kl in right ear. 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 - Social history:: Smoking status: Reported history of juuling and/or vaping. Screenin:49 [facility] ED Fall Risk Assessment (Adult) History of falling in the last 3 months, including since admission No falls in past 3 months (0 pts) Confusion or Disorientation No (0 pts) Intoxicated or Sedated No (0 pts) Impaired Gait No (0 pts) Mobility Assist Device Used No (0 pt) Altered Elimination No (0 pt) Score/Fall Risk Level 0 - 2 = Low Risk Oriented to surroundings, Maintained a safe environment. Abuse screen: Denies threats or abuse. Nutritional screening: No deficits noted. Tuberculosis screening: No symptoms or risk factors identified. Assessment: 03:49 Reassessment: see triage note. Vital Signs: 03:44 BP 112 / 81; Pulse 89; Resp 15; Temp 97.8(TE); Pulse Ox 100% ; Weight 65.77 kg (R); Height 5 ft. 2 in. (157.48 cm); Pain 0/10; 05:03 BP 135 / 66; Pulse 69; Resp 15; kl 03:44 Body Mass Index 26.52 (65.77 kg, 157.48 cm) ED Course: 03:32 Patient arrived in ED. [email or web address] 03:35 José Miguel Maravilla MD is Attending Physician. [facility] 03:46 Triage completed. 04:41 FB removal. Patient did not have IV access during this emergency room visit. 04:47 Migdalia Pichardo MD is Referral Physician. [facility] 05:03 Arm band placed on right wrist. 05:04 Patient has correct armband on for positive identification. Administered Medications: 04:30 Drug: Viscous Lidocaine Liquid (4 %) 5 ml {Note: administered by Val Maravilla MD.} Route: Mucous Membrane; Medication: 03:50 VIS not applicable for this client. Outcome: 04:47 Discharge ordered by . [facility] 05:03 Discharged to home ambulatory. 05:03 Condition: stable 05:03 Discharge instructions given to patient, Instructed on discharge instructions, follow up and referral plans. Demonstrated understanding of instructions, follow-up care. 05:04 Patient left the ED. Signatures: Jihan Bell RN RN kl Anderson, Corey, MD MD cha Jeffries, Jennifer [email or web address]
--- NOTE | 2022-11-22 04:47 | EDPHYS ---
Physician Documentation [facility] Name: Astrid Zafar Age: 32 yrs Sex: Female : 1990 Arrival Date: 11/22/2022 Time: 03:32 Bed 12 Private MD: ED Physician José Miguel Maravilla HPI: 11/22 04:03 This 32 yrs old Female presents to ER via Ambulatory with complaints of jordana Foreign Body In Ear. 04:03 The patient presents with a foreign body sensation, presumably from an insect. The jordana complaints affect the right ear. Onset: The symptoms/episode began/occurred just prior to arrival. Modifying factors: The symptoms are alleviated by nothing, the symptoms are aggravated by nothing. Severity of symptoms: At their worst the symptoms were mild in the emergency department the symptoms are unchanged. The patient has not experienced similar symptoms in the past. 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 - Social history:: Smoking status: Reported history of juuling and/or vaping. ROS: 04:04 Constitutional: Negative for fever, chills, and weight loss, Eyes: Negative for injury, jordana pain, redness, and discharge, Neck: Negative for injury, pain, and swelling, Cardiovascular: Negative for chest pain, palpitations, and edema, Respiratory: Negative for shortness of breath, cough, wheezing, and pleuritic chest pain, Abdomen/GI: Negative for abdominal pain, nausea, vomiting, diarrhea, and constipation, Back: Negative for injury and pain, : Negative for injury, bleeding, discharge, and swelling, MS/Extremity: Negative for injury and deformity, Skin: Negative for injury, rash, and discoloration, Neuro: Negative for headache, weakness, numbness, tingling, and seizure, Psych: Negative for depression, anxiety, suicide ideation, homicidal ideation, and hallucinations, Allergy/Immunology: Negative for hives, rash, and allergies, Endocrine: Negative for neck swelling, polydipsia, polyuria, polyphagia, and marked weight changes, Hematologic/Lymphatic: Negative for swollen nodes, abnormal bleeding, and unusual bruising. 04:04 ENT: Positive for ear pain, foreign body sensation. Exam: 04:04 Constitutional: This is a well developed, well nourished patient who is awake, alert, jordana and in no acute distress. Head/Face: Normocephalic, atraumatic. Eyes: Pupils equal round and reactive to light, extra-ocular motions intact. Lids and lashes normal. Conjunctiva and sclera are non-icteric and not injected. Cornea within normal limits. Periorbital areas with no swelling, redness, or edema. Neck: Trachea midline, no thyromegaly or masses palpated, and no cervical lymphadenopathy. Supple, full range of motion without nuchal rigidity, or vertebral point tenderness. No Meningismus. Chest/axilla: Normal chest wall appearance and motion. Nontender with no deformity. No lesions are appreciated. Cardiovascular: Regular rate and rhythm with a normal S1 and S2. No gallops, murmurs, or rubs. Normal PMI, no JVD. No pulse deficits. Respiratory: Lungs have equal breath sounds bilaterally, clear to auscultation and percussion. No rales, rhonchi or wheezes noted. No increased work of breathing, no retractions or nasal flaring. Abdomen/GI: Soft, non-tender, with normal bowel sounds. No distension or tympany. No guarding or rebound. No evidence of tenderness throughout. Back: No spinal tenderness. No costovertebral tenderness. Full range of motion. Skin: Warm, dry with normal turgor. Normal color with no rashes, no lesions, and no evidence of cellulitis. MS/ Extremity: Pulses equal, no cyanosis. Neurovascular intact. Full, normal range of motion. Neuro: Awake and alert, GCS 15, oriented to person, place, time, and situation. Cranial nerves II-XII grossly intact. Motor strength 5/5 in all extremities. Sensory grossly intact. Cerebellar exam normal. Normal gait. Psych: Awake, alert, with orientation to person, place and time. Behavior, mood, and affect are within normal limits. 04:04 ENT: Ear canal(s): foreign body, an insect, TM's: no acute changes, Examination of the other ear shows no obvious abnormality, normal, Nose: is normal, no acute changes, Posterior pharynx: is normal, no acute changes. Vital Signs: 03:44 BP 112 / 81; Pulse 89; Resp 15; Temp 97.8(TE); Pulse Ox 100% ; Weight 65.77 kg (R); kl Height 5 ft. 2 in. (157.48 cm); Pain 0/10; 05:03 BP 135 / 66; Pulse 69; Resp 15; kl 03:44 Body Mass Index 26.52 (65.77 kg, 157.48 cm) Procedures: 04:45 Foreign Body Removal: an insect, from the right ear canal, by using alligator clamps, jordana lidocaine lavage, normal saline irrigation, Dressing: none, The patient tolerated the removal well, partial removal. MDM: 03:35 Patient medically screened. [facility] 04:06 Differential diagnosis: foreign body. Data reviewed: vital signs, nurses notes. jordana Consideration of Admission/Observation Escalation of care including admission/observation considered. I considered the following discharge prescriptions or medication management in the emergency department Medications were administered in the Emergency Department. See MAR. Test considered but Not performed: Labs: cbc, comp met not done. Care significantly affected by the following chronic conditions: none. 04:46 Management of patient was discussed with the following: Customs Entry Clerk: dr rodriguez, will jordana see in am office. 11/22 04:12 Order name: Lissette. Order: irrigate right ear; Complete Time: 04:41 [facility] Administered Medications: 04:30 Drug: Viscous Lidocaine Liquid (4 %) 5 ml {Note: administered by Val Maravilla MD.} Route: kl Mucous Membrane; Disposition Summary: 11/22/22 04:47 Discharge Ordered Location: Home jordana Problem: new jordana Symptoms: have improved jordana Condition: Stable jordana Diagnosis - Foreign body in right ear - insect partial removal(11/22/22 04:47) jordana Followup: jordana - With: Private Physician - When: 1 - 2 days - Reason: Recheck today's complaints, Continuance of care, Re-evaluation by your physician Followup: jordana - With: - When: 2 - 3 days - Reason: Recheck today's complaints, Re-evaluation by your physician Discharge Instructions: - Discharge Summary Sheet jordana - Ear Foreign Body jordana - Ear Foreign Body, [id number] jordana Forms: - Medication Reconciliation Form jordana - Thank You Letter jordana - Antibiotic Education jordana - Prescription Opioid Use jordana Signatures: Jihan Bell RN RN kl Anderson, Corey, MD MD cha Corrections: (The following items were deleted from the chart) 04:47 04:47 Foreign body in right ear - insect jordana silveira
[2022-11-22 05:23] VITALS: BP 112/81; TEMP 97.8; O2SAT 100
== END 2022-11-22 05:04 | disposition home or self-care (01) ==
LOC: ER 03:30
PROC: 09C3XZZ Extirpation of Matter from Right External Auditory Canal, External Approach (ICD-10-PCS; principal; 2022-11-22)
DX: T16.1XXA Foreign body in right ear, initial encounter (principal)

== ENCOUNTER 2023-08-25 18:18 | Emergency (ER) | payer SELFPAY ==
--- OUTSIDE RECORDS SUMMARY | 2023-08-25 18:22 | XMS REPORT | Continuity of Care Document ---
:1990 Author Organization [facility] t Address [address] [place] [address] Care Team Providers Name Role Phone Sherrie Alegria Primary Care Physician [phone] CANDICE DE GUZMAN Attending Clinician Unavailable Sherrie Alegria Attending Clinician [phone] Horacio SUTTON, Carmelo Ortiz Attending Clinician Unavailable Doctor Unassigned, [place] Attending Clinician Unavailable Candice De Guzman CNM Attending Clinician SKYLA SCHUMACHER Attending Clinician Unavailable Provider, Daxa Temp Attending Clinician Unavailable Skyla Schumacher NP Attending Clinician SHERRIE AGUILAR Attending Clinician Unavailable Anna SUTTON, Tiff Muñoz Attending Clinician Unavailable NETTIE HARMAN Attending Clinician Unavailable Ezequiel DOLL Attending Clinician Unavailable Ezequiel Ortiz Attending Clinician TERESSA MOSES Attending Clinician Unavailable Nurse, [facility] Attending Clinician Unavailable Teressa Cruz Attending Clinician Nettie German Attending Clinician Daxa Dunlap Attending Clinician Unavailable Payers Payer Name Policy Type Policy Number Effective Date Expiration Date S ource Problems Condition Condition Condition Status Onset Resolution Last Treating Co mments Source Name Details Category Date Date Treatment Clinician Date Nexplanon Nexplanon Disease Active 2023-[address] in place 4-25 ity of 00:00: [place] 00 Medical Branch Other Other Disease Active 2021-10 Univers general general 2-09 ity of counseling [place] advice 00 [place] for for Branch contracept contracept carmen carmen management management Papanicola Papanicola Disease Active Overview : Univers ou smear ou smear 8-11 Formattin ity of of cervix of cervix 00:00: g of this [place] with low with low 00 note Medica l grade grade might be Branch squamous squamous different intraepith intraepith from the elial elial original. 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 Well woman Well woman Disease Active U nivers exam exam - ity of 00:00: [place] 00 Medical Branch Dysuria Dysuria Disease Active Univers - ity of 00:00: [place] 00 Medical Branch IUD IUD Disease Active Univers (intrauter (intrauter - it y of ine ine 00:00: [place] device) in device) in [address] Branch Encounter Encounter Disease Active Uni vers for for 7 ity of surveillan surve[place]an [place] ce of ce of Medical other other Branch contracept contracept carmen carmen IUD IUD Disease Active Univers (intrauter (intrauter - it y of ine ine 00:00: [place] device) in device) in [address] Branch Allergies, Adverse Reactions, Alerts Allergy Allergy Status Severity Reaction(s) Onset Inactive Treating Comm ents Source Name Type Date Date Clinician NO KNOWN Drug Active Univers ALLERGIE Class ity of S [facility] Social History Social Habit Start Date Stop Date Quantity Comments Source Gender identity Universit y of [facility] Sexual orientation Univer sity of [facility] History [facility] o f Alcohol Frequency [facility] edical Branch History [facility] o f Alcohol Std Drinks [place] [facility] History [facility] o f Alcohol Binge [place] [facility] Alcohol intake 2023-06-29 2023-06-29 Current drinker Unive rsity of 00:00:00 00:00:00 of alcohol [place] Medical (finding) Branch History of Social 2023-06-19 2023-06-19 Univers ity of function 00:00:00 00:00:00 [facility] Exposure to 2023-01-21 2023-01-31 Not sure University SARS-CoV-2 (event) 00:00:00 09:44:00 [facility] Tobacco use and 2022-09-16 2022-09-16 Smokeless tobacco Un iversity of exposure 00:00:00 00:00:00 non-user [facility] Tobacco Comment 2022-09-16 2022-09-16 vapes Universit y of 00:00:00 00:00:00 [facility] Alcohol Comment 2021-04-29 2021-04-29 occasional Universit y of 00:00:00 00:00:00 [facility] Sex Assigned At [birth year] Universit y of 00:00:00 00:00:00 [facility] Smoking Status Start Date Stop Date Source Never smoked tobacco [facility] Medications Ordered Filled Start Stop Current Ordering Indication Dosage Frequency Signature Comments Components Source Medication Medication Date Date Medication? Clinician (SIG) Name [facility] Yes [id number] 1{each} Insert 1 Univers 0.12-0.015 9-21 Each into ity of mg/24 hr 00:00: vagina [place] vaginal 00 once every Medica l insert month. Branch Insert vaginally and leave in place for 3 consecutiv e weeks, then remove for 1 week. NUVARING Yes [id number] 1{each} Insert 1 Univers 0.12-0.015 9-21 Each into ity of mg/24 hr 00:00: vagina [place] vaginal 00 once every Medica l insert month. Branch Insert vaginally and leave in place for 3 consecutiv e weeks, then remove for 1 week. NUVARING Yes [id number] 1{each} Insert 1 Univers 0.12-0.015 9-21 Each into ity of mg/24 hr 00:00: vagina [place] vaginal 00 once every Medica l insert month. Branch Insert vaginally and leave in place for 3 consecutiv e weeks, then remove for 1 week. NUVARING Yes [id number] 1{each} Insert 1 Univers 0.12-0.015 9-21 Each into ity of mg/24 hr 00:00: vagina [place] vaginal 00 once every Medica l insert month. Branch Insert vaginally and leave in place for 3 consecutiv e weeks, then remove for 1 week. NUVARING Yes [id number] 1{each} Insert 1 Univers 0.12-0.015 9-21 Each into ity of mg/24 hr 00:00: vagina [place] vaginal 00 once every Medica l insert month. Branch Insert vaginally and leave in place for 3 consecutiv e weeks, then remove for 1 week. NUVARING Yes [id number] 1{each} Insert 1 Univers 0.12-0.015 9-21 Each into ity of mg/24 hr 00:00: vagina [place] vaginal 00 once every Medica l insert month. Branch Insert vaginally and leave in place for 3 consecutiv e weeks, then remove for 1 week. NUVARING Yes [id number] 1{each} Insert 1 Univers 0.12-0.015 9-21 Each into ity of mg/24 hr 00:00: vagina [place] vaginal 00 once every Medica l insert month. Branch Insert vaginally and leave in place for 3 consecutiv e weeks, then remove for 1 week. NUVARING Yes [id number] 1{each} Insert 1 Univers 0.12-0.015 9-21 Each into ity of mg/24 hr 00:00: vagina [place] vaginal 00 once every Medica l insert month. Branch Insert vaginally and leave in place for 3 consecutiv e weeks, then remove for 1 week. fluconazole 2022- Yes [id number] 150mg Take 1 Univers 150 mg 9-08 17-16 tablet by ity of tablet 00:00: 04:59 mouth [place] 00 :00 every 72 Medical (seventy-t Branch wo) hours for 2 doses. fluconazole 2022- Yes [id number] 150mg Take 1 Univers 150 mg 9-11 -16 tablet by ity of tablet 00:00: 04:59 mouth [place] 00 :00 every 72 Medical (seventy-t Branch wo) hours for 2 doses. etonogestre 2022- No [id number] 68mg Univers L 10-31 ity of (NEXPLANON) 22:30: 21:44 [place] implant 68 00 :00 Medical mg Branch etonogestre 2022- No [id number] 68mg 68 mg, Univers L 10-31 Subdermal, ity of (NEXPLANON) 22:30: 21:44 ONCE NOW, [place] implant 68 00 :00 1 dose, On Med ical mg [facility] 10/31/22 at 1630, Routine
Use approved by: RESIDENT CARE DIRECTOR etonogestre 2022- No [id number] 68mg Univers L 10-31 ity of (NEXPLANON) 22:30: 21:44 [place] implant 68 00 :00 Medical mg Branch etonogestre 2022- No [id number] 68mg 68 mg, Univers L 10-31 Subdermal, ity of (NEXPLANON) 22:30: 21:44 ONCE NOW, [place] implant 68 00 :00 1 dose, On Med ical mg [facility] 10/31/22 at 1630, Routine
Use approved by: RESIDENT CARE DIRECTOR No known 2022-0 No No known Unive rs medications - medication it y of 15:46: [address] No known 2022-0 No No known Unive rs medications - medication it y of 15:46: [address] No known 2022-0 No No known Unive rs medications - medication it y of 09:06: [address] No known 2022-0 No No known Unive rs medications -09 medication it y of 09:06: [address] No known 2022-0 No No known Unive rs medications -09 medication it y of 09:06: [address] No known 2022-0 No No known Unive rs medications 1-09 medication it y of 09:06: [address] No known 2021- No No known Unive rs medications 2-09 medication it y of 14:15: [address] No known 2021-1 No No known Unive rs medications 2-09 medication it y of 14:15: [address] No known 2021- No No known Unive rs medications 2-09 medication it y of 14:15: [address] No known 2021-10 No No known Unive rs medications 2-09 medication it y of 14:15: s [place] 13 Medical Branch ketorolac 2021- No 15mg 15 mg, Unive rs (TORADOL) 03-09 Intramuscu ity of injection 03:15: 02:23 lar, ONCE, [place] 15 mg 00 :00 1 dose, On Medical Tue Branch 03/08/22 at 2215, IGNACIO
Fa culty member approving Restricted medication : Ezequiel DOLL ibuprofen Yes [id number] 600mg Take 1 Univers 600 mg 5-31 tablet by ity of tablet 00:00: mouth [place] 00 every 6 Medical (six) Branch hours as needed for Pain (scale 4-6). ibuprofen Yes [id number] 600mg Take 1 Univers 600 mg 5-31 tablet by ity of tablet 00:00: mouth [place] 00 every 6 Medical (six) Branch hours as needed for Pain (scale 4-6). ibuprofen 2021- No [id number] 600mg Take 1 Univers 600 mg 5-31 - tablet by ity of tablet 00:00: 00:00 mouth [place] 00 :00 every 6 Medical (six) Branch hours as needed for Pain (scale 4-6). ibuprofen 2021- No [id number] 600mg Take 1 Univers 600 mg 5-31 - tablet by ity of tablet 00:00: 00:00 mouth [place] 00 :00 every 6 Medical (six) Branch hours as needed for Pain (scale 4-6). ibuprofen 2021- No [id number] 600mg Take 1 Univers 600 mg 5-31 - tablet by ity of tablet 00:00: 00:00 mouth [place] 00 :00 every 6 Medical (six) Branch hours as needed for Pain (scale 4-6). ampicillin 2020- No [id number] 500mg Take 1 Univers 500 mg 05-31 capsule by ity of capsule 00:00: 04:59 mouth [place] 00 :00 every 6 Medical (six) Branch hours for 10 days. ampicillin 2020-2020- No [id number] 500mg Take 1 Univers 500 mg 05-31 capsule by ity of capsule 00:00: 04:59 mouth [place] 00 :00 every 6 Medical (six) Branch hours for 10 days. ampicillin 2020- No [id number] 500mg Take 1 Univers 500 mg 05-31 capsule by ity of capsule 00:00: 04:59 mouth [place] 00 :00 every 6 Medical (six) Branch hours for 10 days. terconazole 0 Yes [id number] 1{appli Insert 1 Univers 0.8 % 8-11 cator} Applicator ity of vaginal 00:00: into [place] cream 00 vagina at Medical bedtime. Branch terconazole Yes [id number] 1{appli Insert 1 Univers 0.8 % 8-11 cator} Applicator ity of vaginal 00:00: into [place] cream 00 vagina at Medical bedtime. Branch terconazole Yes [id number] 1{appli Insert 1 Univers 0.8 % 8-11 cator} Applicator ity of vaginal 00:00: into [place] cream 00 vagina at Medical bedtime. [place] terconazole Yes [id number] 1{appli Insert 1 Univers 0.8 % 8-11 cator} Applicator ity of vaginal 00:00: into [place] cream 00 vagina at Medical bedtime. [place] terconazole Yes [id number] 1{appli Insert 1 Univers 0.8 % 8-11 cator} Applicator ity of vaginal 00:00: into [place] cream 00 vagina at Medical bedtime. [place] terconazole Yes [id number] 1{appli Insert 1 Univers 0.8 % 8-11 cator} Applicator ity of vaginal 00:00: into [place] cream 00 vagina at Medical bedtime. Branch terconazole Yes [id number] 1{appli Insert 1 Univers 0.8 % 8-11 cator} Applicator ity of vaginal 00:00: into [place] cream 00 vagina at Medical bedtime. Branch terconazole Yes [id number] 1{appli Insert 1 Univers 0.8 % 8-11 cator} Applicator ity of vaginal 00:00: into [place] cream 00 vagina at Medical bedtime. Branch terconazole Yes [id number] 1{appli Insert 1 Univers 0.8 % 8-11 cator} Applicator ity of vaginal 00:00: into [place] cream 00 vagina at Medical bedtime. [place] terconazole Yes [id number] 1{appli Insert 1 Univers 0.8 % 8-11 cator} Applicator ity of vaginal 00:00: into [place] cream 00 vagina at Medical bedtime. [place] terconazole Yes [id number] 1{appli Insert 1 Univers 0.8 % 8-11 cator} Applicator ity of vaginal 00:00: into [place] cream 00 vagina at Medical bedtime. [place] terconazole Yes [id number] 1{appli Insert 1 Univers 0.8 % 8-11 cator} Applicator ity of vaginal 00:00: into [place] cream 00 vagina at Medical bedtime. [place] terconazole Yes [id number] 1{appli Insert 1 Univers 0.8 % 8-11 cator} Applicator ity of vaginal 00:00: into [place] cream 00 vagina at Medical bedtime. [place] terconazole Yes [id number] 1{appli Insert 1 Univers 0.8 % 8-11 cator} Applicator ity of vaginal 00:00: into [place] cream 00 vagina at Medical bedtime. [place] terconazole 2021- No [id number] 1{appli Insert 1 Univers 0.8 % 05-19 cator} Applicator ity o f vaginal 00:00: 00:00 into [place] cream 00 :00 vagina at Medical bedtime. [place] terconazole 202- No [id number] 1{appli Insert 1 Univers 0.8 % 05-19 cator} Applicator ity o f vaginal 00:00: 00:00 into [place] cream 00 :00 vagina at Medical bedtime. [place] terconazole 202- No [id number] 1{appli Insert 1 Univers 0.8 % 05-19 cator} Applicator ity o f vaginal 00:00: 00:00 into [place] cream 00 :00 vagina at Medical bedtime. [place] No known No Univers medications [facility] No known [facility] Univers medications [facility] Vital Signs Vital Name Observation Time Observation Value Comments Source Systolic blood 2023-06-29 16:09:00 123 mm[Hg] Univer sity of pressure [place] [facility] Diastolic blood 2023-06-29 16:09:00 79 mm[Hg] Unive rsity of pressure [place] [facility] Heart rate 2023-06-29 16:09:00 89 /min Universi ty of [place] [facility] Body temperature 2023-06-29 16:09:00 35.94 Rosy Univ ersity of [place] [facility] Respiratory rate 2023-06-29 16:09:00 18 /min Univ ersity of [place] [facility] Body height 2023-06-29 16:09:00 154.9 cm Universi ty of [place] [facility] Body weight 2023-06-29 16:09:00 66.31 kg Universi ty of [place] [facility] BMI 2023-06-29 16:09:00 27.62 kg/m2 Universi ty of [place] [facility] Systolic blood 2023-06-19 14:45:00 113 mm[Hg] Univer sity of pressure [place] [facility] Diastolic blood 2023-06-19 14:45:00 77 mm[Hg] Unive rsity of pressure [place] [facility] Heart rate 2023-06-19 14:45:00 83 /min Universi ty of [place] [facility] Body temperature 2023-06-19 14:45:00 36.11 Rosy Univ ersity of [place] [facility] Respiratory rate 2023-06-19 14:45:00 18 /min Univ ersity of [place] [facility] Body height 2023-06-19 14:45:00 154.9 cm Universi ty of [place] [facility] Body weight 2023-06-19 14:45:00 67.274 kg Universi ty of [place] [facility] BMI 2023-06-19 14:45:00 28.02 kg/m2 Universi ty of [place] [facility] Systolic blood 2023-01-31 14:45:00 118 mm[Hg] Univer sity of pressure [place] [facility] Diastolic blood 2023-01-31 14:45:00 80 mm[Hg] Unive rsity of pressure [place] [facility] Heart rate 2023-01-31 14:45:00 83 /min Universi ty of [place] [facility] Body temperature 2023-01-31 14:45:00 36.28 Rosy Univ ersity of [place] [facility] Respiratory rate 2023-01-31 14:45:00 18 /min Univ ersity of [place] [facility] Body height 2023-01-31 14:45:00 154.9 cm Universi ty of [place] [facility] Body weight 2023-01-31 14:45:00 64.774 kg Universi ty of [place] [facility] BMI 2023-01-31 14:45:00 26.98 kg/m2 Universi ty of [place] [facility] Systolic blood 2022-10-31 16:40:00 119 mm[Hg] Univer sity of pressure [place] [facility] Diastolic blood 2022-10-31 16:40:00 81 mm[Hg] Unive rsity of pressure [place] [facility] Heart rate 2022-10-31 16:40:00 76 /min Universi ty of [place] [facility] Body temperature 2022-10-31 16:40:00 36.67 Rosy Univ ersity of [place] [facility] Respiratory rate 2022-10-31 16:40:00 18 /min Univ ersity of [place] [facility] Body weight 2022-10-31 16:40:00 63.504 kg Universi ty of [place] [facility] BMI 2022-10-31 16:40:00 26.45 kg/m2 Universi ty of [place] [facility] Systolic blood 2022-10-17 14:51:00 119 mm[Hg] Univer sity of pressure [place] [facility] Diastolic blood 2022-10-17 14:51:00 71 mm[Hg] Unive rsity of pressure [place] [facility] Heart rate 2022-10-17 14:51:00 89 /min Universi ty of [place] [facility] Body temperature 2022-10-17 14:51:00 37.17 Rosy Univ ersity of [place] [facility] Respiratory rate 2022-10-17 14:51:00 20 /min Univ ersity of [place] [facility] Body height 2022-10-17 14:51:00 154.9 cm Universi ty of [place] [facility] Body weight 2022-10-17 14:51:00 63.64 kg Universi ty of [place] [facility] BMI 2022-10-17 14:51:00 26.51 kg/m2 Universi ty of [place] [facility] Systolic blood 2022-09-16 20:01:00 133 mm[Hg] Univer sity of pressure [place] [facility] Diastolic blood 2022-09-16 20:01:00 84 mm[Hg] Unive rsity of pressure [place] [facility] Heart rate 2022-09-16 20:01:00 81 /min Universi ty of [place] [facility] Body temperature 2022-09-16 20:01:00 36.72 Rosy Univ ersity of [place] [facility] Respiratory rate 2022-09-16 20:01:00 18 /min Univ ersity of [place] [facility] Body height 2022-09-16 20:01:00 154.9 cm Universi ty of [place] [facility] Body weight 2022-09-16 20:01:00 64.581 kg Universi ty of [place] [facility] BMI 2022-09-16 20:01:00 26.90 kg/m2 Universi ty of [place] [facility] Systolic blood 2022-03-09 02:27:24 127 mm[Hg] Univer sity of pressure [place] [facility] Diastolic blood 2022-03-09 02:27:24 90 mm[Hg] Unive rsity of pressure [place] [facility] Heart rate 2022-03-09 02:27:24 85 /min Universi ty of [place] [facility] Body temperature 2022-03-09 02:27:24 36.83 Rosy Univ ersity of [place] [facility] Respiratory rate 2022-03-09 02:27:24 18 /min Univ ersity of [place] [facility] Body height 2022-03-09 01:27:00 154.9 cm Universi ty of [place] [facility] Body weight 2022-03-09 01:27:00 64.864 kg Universi ty of [place] [facility] BMI 2022-03-09 01:27:00 27.02 kg/m2 Universi ty of [place] [facility] Oxygen saturation in 2022-03-09 01:27:00 100 /min University Arterial blood by [facility] Pulse oximetry Branch Systolic blood 2022-03-09 00:51:00 119 mm[Hg] Univer sity of pressure [place] [facility] Diastolic blood 2022-03-09 00:51:00 77 mm[Hg] Unive rsity of pressure [place] [facility] Heart rate 2022-03-09 00:51:00 82 /min Universi ty of [place] [facility] [place] Body temperature 2022-03-09 00:51:00 36.89 Rosy Univ ersity of [facility] Respiratory rate 2022-03-09 00:51:00 19 /min Univ ersity of [place] [facility] Body height 2022-03-09 00:51:00 154.9 cm Universi ty of [place] [facility] [place] Body weight 2022-03-09 00:51:00 64.864 kg Universi ty of [place] [facility] [place] BMI 2022-03-09 00:51:00 27.02 kg/m2 Universi [facility] Oxygen saturation in 2022-03-09 00:51:00 100 /min [facility] blood by [facility] Pulse oximetry Branch Systolic blood 2021-04-29 12:59:00 108 mm[Hg] Univer sity of [facility] Diastolic blood 2021-04-29 12:59:00 73 mm[Hg] Unive rsity of [facility] Heart rate 2021-04-29 12:59:00 80 /min Universi ty [facility] Body temperature 2021-04-29 12:59:00 37.06 Rosy [facility] rate 2021-04-29 12:59:00 16 /min [facility] Body height 2021-04-29 12:59:00 157.5 cm Universi ty [facility] Medical [place] Body weight 2021-04-29 12:59:00 60.963 kg Universi ty [facility] BMI 2021-04-29 12:59:00 24.58 kg/m2 [facility] Procedures Procedure Date / Time Performed Performing Clinician Sour e DISCLOSURE AND 2023-06-30 05:01:00 Doctor Unassigned, No [facility] CONSENT, MEDICAL AND Name Medical [facility] SURGICAL PROCEDURES [facility] PATIENT FINANCIAL 2023-01-31 14:32:57 Doctor Unassigned, No [facility] POLICY [facility] Branch DISCLOSURE AND CONSENT 2022-10-31 06:01:00 Doctor Unassigned, No [facility] MEDICAL & SURGICAL Name Medical [facility] h PROCEDURES - FEMALM ASSIGNMENT OF BENEFITS 2022-09-16 19:50:12 Doctor Unassigned, No [facility] Encounters Start End Encounter Admission Attending Care Care Encounter Source Date/Time Date/Time Type Type Clinicians Facility Department ID 2023-08-25 2023-08-25 Telephone [facility] [id number] [facility] 00:00:00 00:00:00 Sherrie C RESIDENT CARE DIRECTOR [id number] [facility] [id number] Hernán as MATERNAL [id number] [facility] & CHILD [address] [place] [address] 2023-08-24 2023-08-24 Refill [facility] [id number] Univers 00:00:00 00:00:00 Sherrie C RESIDENT CARE DIRECTOR [id number] [facility] [id number] Hernán as MATERNAL [id number] [facility] & CHILD [address] [place] [address] 2023-08-02 2023-08-02 Telephone [facility] [id number] Univers 00:00:00 00:00:00 Sherrie C RESIDENT CARE DIRECTOR [id number] [facility] [id number] Hernán as MATERNAL [id number] [address] 2023-07-29 2023-07-29 Nurse FANY Leonard [id number] Univers 00:00:00 00:00:00 Triage Carmelo OJEDA [id number] ity of [facility] [id number] Hernán as [id number] [facility] 019 [place] 2023-06-30 2023-06-30 Orders Doctor FANY [id number] Univers 00:00:00 00:00:00 Only Unassigned, LYNETTE [id number] ity of [place] [facility] [id number] Hernán as [id number] [facility] 009 [place] 2023-06-29 2023-06-29 Outpatient R GEGE [facility] [id number] Univers 10:45:00 12:02:38 CANDICE itsupriya [facility] 2023-06-29 2023-06-29 Office Gege [facility] [id number] Univers 10:45:00 12:02:38 Visit Candice Tucker RESIDENT CARE DIRECTOR [id number] i ty of [place] [id number] Hernán as MATERNAL [id number] Med ical & CHILD [address] [place] [address] 2023-06-19 2023-06-19 Outpatient R VINCENT [facility] [id number] Univers 09:15:00 15:04:25 SKYLA ity [facility] 2023-06-19 2023-06-19 Office Provider, Daxa Harrison [facility] [id number] Univers 09:15:00 15:04:25 Visit Skyla Schumacher RESIDENT CARE DIRECTOR [id number] [facility] [id number] Hernán as MATERNAL [id number] Med ical & CHILD [address] [place] [address] 2023-05-11 2023-05-11 Telephone Vicente [facility] [id number] Univers 00:00:00 00:00:00 Sherrie Neal RESIDENT CARE DIRECTOR [id number] ity of [place] [id number] Hernán as MATERNAL [id number] Med ical & CHILD [address] [place] [address] 2023-01-31 2023-01-31 Outpatient R VICENTE [facility] [id number] Univers 10:00:00 10:06:26 SHERRIE keenan [facility] 2023-01-31 2023-01-31 Office Vicente [facility] [id number] Univers 10:00:00 10:06:26 Visit Sherrie Neal RESIDENT CARE DIRECTOR [id number] ity of [place] [id number] Hernán as MATERNAL [id number] Med ical & CHILD [address] [place] [address] 2023-01-31 2023-01-31 Outpatient R VICENTE [facility] [id number] Univers 10:00:00 10:00:00 SHERRIE keenan [facility] 2023-01-31 2023-01-31 Orders Doctor SOARES [id number] Univers 00:00:00 00:00:00 Only Unassigned, LYNETTE [id number] ity of [place] [facility] [id number] Hernán as [id number] [address] 2022-12-21 2022-12-21 Outpatient R VICENTE, [facility] [id number] Univers 13:15:00 13:15:00 SHERRIE avila o shlomo [facility] 2022-11-25 2022-11-25 Outpatient R VICENTE, [facility] [id number] Univers 13:30:00 13:30:00 SHERRIE avila o shlomo [facility] 2022-11-25 2022-11-25 Outpatient R GEGE, [facility] [id number] Univers 08:00:00 08:00:00 CANDICE ity [facility] 2022-11-18 2022-11-18 [facility] 1.2.840.114 [id number] Univers 00:00:00 00:00:00 Sherrie C RESIDENT CARE DIRECTOR [id number] ity of [place] [id number] Hernán as MATERNAL [phone] [facility] ical & CHILD [address] [place] [address] 2022-11-15 2022-11-15 Outpatient R VICENTE, [facility] [id number] Univers 13:15:00 13:15:00 SHERRIE keenan [facility] 2022-11-10 2022-11-10 [facility]phone [facility] 1.2.840.114 [id number] Univers 00:00:00 00:00:00 Sherrie C RESIDENT CARE DIRECTOR [id number] [facility] [id number] Hernán as MATERNAL [id number] [facility] ical & CHILD [address] [place] [address] 2022-11-02 2022-11-02 [facility] [id number] Univers 00:00:00 00:00:00 Sherrie C RESIDENT CARE DIRECTOR [id number] [facility] [id number] Hernán as MATERNAL [phone] [facility] ical & CHILD [address] [place] [address] 2022-10-31 2022-10-31 Office [facility] [id number] Univers 15:00:00 15:00:00 Visit Sherrie Neal RESIDENT CARE DIRECTOR [id number] [facility] [id number] Hernán as MATERNAL [phone] [facility] & [address] 2022-10-31 2022-10-[address] [facility] [id number] Univers 15:00:00 10:56:14 SHERRIE mcclure f [facility] 2022-10-31 2022-10-31 Orders Doctor FANY 1.2.840.114 [id number] Univers 00:00:00 00:00:00 Only Unassigned, LYNETTE [id number] ity of [place] [facility] [id number] Hernán as [phone] [address] 2022-10-21 2022-10-21 Telephone [facility] 1.2.840.114 [id number] Univers 00:00:00 00:00:00 Sherrie Neal RESIDENT CARE DIRECTOR [id number] [facility] [id number] Hernán as MATERNAL [phone] [address] 2022-10-21 2022-10-21 Nurse Benjamin SOARES [id number] Univers 00:00:00 00:00:00 Triage dTiff [id number] ity of [facility] [id number] Hernán as [phone] [facility] [address] [place] 2022-10-17 2022-10-[address] [facility] [id number] Univers 08:30:00 09:03:45 SHERRIE keenan [facility] 2022-10-17 2022-10-17 Office [facility] [id number] Univers 08:30:00 09:03:45 Visit Sherrie Neal RESIDENT CARE DIRECTOR [id number] [facility] [id number] Hernán as MATERNAL [phone] Med ical & CHILD [address] [place] [address] 2022-10-17 2022-10-17 Outpatient R VICENTE [facility] [id number] Univers 08:30:00 08:30:00 SHERRIE avila o f [facility] 2022-10-13 2022-10-13 Telephone [facility] 1.2.840.114 [id number] Univers 00:00:00 00:00:00 Sherrie C RESIDENT CARE DIRECTOR [id number] ity of [facility] [id number] Hernán as MATERNAL [phone] [facility] & [facility] [address] [place] [address] 2022-10-12 2022-10-12 Telephone [facility] 1.2.840.114 [id number] Univers 00:00:00 00:00:00 Sherrie C RESIDENT CARE DIRECTOR [id number] ity of [facility] [id number] Hernán as MATERNAL [id number] [facility] & CHILD [address] [place] [address] 2022-10-11 2022-10-11 Telephone [facility] 1.2.840.114 [id number] Univers 00:00:00 00:00:00 Sherrie C RESIDENT CARE DIRECTOR [id number] ity of [facility] [id number] Hernán as MATERNAL [phone] [facility] & CHILD [address] [place] [address] 2022-09-20 2022-09-20 Telephone [facility] 1.2.840.114 [id number] Univers 00:00:00 00:00:00 Sherrie C RESIDENT CARE DIRECTOR [id number] ity of [facility] [id number] Hernán as MATERNAL [id number] [facility] & CHILD [address] [place] [address] 2022-09-16 2022-09-16 Outpatient R VICENTE [facility] [id number] Univers 13:45:00 14:59:34 SHERRIE mcclure f [facility] 2022-09-16 2022-09-16 Office [facility] [id number] Univers 13:45:00 14:59:34 Visit Sherrie C RESIDENT CARE DIRECTOR [id number] [facility] [id number] Hernán as MATERNAL [phone] Med ical & CHILD [address] [place] [address] 2022-09-16 2022-09-16 Orders Doctor FANY 1.2.840.114 [id number] Univers 00:00:00 00:00:00 Only Unassigned, LYNETTE [id number] ity of [place] [facility] [id number] Hernán as [phone] [facility] 009 [place] 2022-08-08 2022-08-08 Outpatient R KIMANI [facility] [id number] Univers 09:00:00 09:00:00 NETTIE avila o f [facility] 2022-03-08 2022-03-08 Emergency X Ezequiel DOLL [facility] ERT [id number] Univers 20:30:00 21:37:00 ity of [facility] 2022-03-08 2022-03-08 Emergency Ezequiel Doll [facility] 1.2.840.114 [id number] Univers 20:30:00 21:37:00 Janna ARLINGTON [id number] [facility] [id number] [place] [facility] [id number] [facility] 084 [place] 2022-03-08 2022-03-08 Outpatient R AURELIA [facility] [id number] Univers 19:15:00 19:50:45 TERESSA avila o shlomo [facility] 2022-03-08 2022-03-08 Nurse Nurse, [facility] 1.2.840.114 [id number] Univers 19:15:00 19:50:45 [facility] [id number] ity [facility] [id number] Hernán as CHERYL?BLEA [phone] Ok judith [address] MEDICAL OFFICE BUILDING 2021-10-15 2021-10-15 Telephone Kimani [facility] [id number] Univers 00:00:00 00:00:00 Nettie Hernandez RESIDENT CARE DIRECTOR [id number] ity [facility] [id number] Hernán as MATERNAL [phone] [facility] & CHILD [address] [place] [address] 2021-05-31 2021-05-31 [facility]phone [facility] [id number] Univers 00:00:00 00:00:00 Constantina R RESIDENT CARE DIRECTOR [id number] ity of [facility] [id number] Hernán as MATERNAL [phone] [facility] & CHILD [address] [place] [address] 2021-05-31 2021-05-31 [place] [facility] [id number] Univers 00:00:00 00:00:00 Kiannda R RESIDENT CARE DIRECTOR [id number] [facility] [id number] Hernán as MATERNAL [phone] [facility] & [address] 2021-05-25 2021-05-25 [employer] [facility], [facility] 1.2.840. 114 [id number] Univers 13:07:25 14:08:05 Visit HarmanNettie RESIDENT CARE DIRECTOR [id number] [facility] [id number] Hernán as MATERNAL [phone] [address] 2021-05-25 2021-05-25 Outpatient R KIMANI [facility] [id number] Univers 13:00:00 13:00:00 KIANNDGarrett ity o f [facility] 2021-05-24 2021-05-24 [facility]phone [facility] [id number] Univers 00:00:00 00:00:00 Constantina R RESIDENT CARE DIRECTOR [id number] ity of [facility] [id number] Hernán as MATERNAL [id number] [facility] & CHILD [address] [place] [address] 2021-05-19 2021-05-19 [facility]phone [facility] [id number] Univers 00:00:00 00:00:00 Constantina R RESIDENT CARE DIRECTOR [id number] ity of [facility] [id number] Hernán as MATERNAL [phone] [facility] & CHILD [address] [place] [address] 2021-05-03 2021-05-03 [facility]phone [facility] [id number] Univers 00:00:00 00:00:00 Nettie Hernandez RESIDENT CARE DIRECTOR [id number] ity of [facility] [id number] Hernán as MATERNAL [id number] [facility] & [address] 2021-04-29 2021-04-29 [facility] 1.2.840.114 [id number] Univers 07:52:14 08:34:41 Visit Nettie Hernandez RESIDENT CARE DIRECTOR [id number] ity of [facility] [id number] Hernán as MATERNAL [id number] [facility] & [address] 2021-04-29 2021-04-29 Outpatient R KIMANI [facility] [id number] Univers 07:45:00 07:45:00 NETTIE keenan [facility] Results This patient has no known results.
[2023-08-25 19:17] LABS: Absolute Lymphocytes (CBC) 2.2 K/uL (0.7-4.9); Hematocrit 45.3 % (36.0-45.0); Lymphocytes % 23.7 % (15.3-44.8); MCV 90.6 fL (80-100); MPV 7.4 fL (7.6-11.3); Platelets 368 thou/uL (152-406)
[2023-08-25 19:19] LABS: Specific Gravity 1.014 (1.005-1.030)
[2023-08-25 19:20] LABS: Specific Gravity 1.014 (1.005-1.030); Urine Bacteria <20 /HPF (<20); Urine Bilirubin NEGATIVE (Negative); Urine Blood 1+ (Negative); Urine Clarity Clear (Clear); Urine Color Colorless (Yellow); Urine Crystals Unidentified Few /HPF (None Seen); Urine Glucose NEGATIVE (Negative); Urine Protein NEGATIVE (Negative); Urine RBC <5 /HPF (None Seen); Urine Urobilinogen Normal (Normal); Urine WBC Clump Rare /HPF (None Seen)
[2023-08-25 19:33] LABS: Albumin 3.3 g/dL (3.4-5.0); Bilirubin Total 0.2 mg/dL (0.2-1.0); Potassium 3.5 mEq/L (3.5-5.1); Protein, Total 7.7 g/dL (6.4-8.2)
[2023-08-25 19:42] LABS: SARS-CoV-2 Antigen Rapid Res Negative (Negative)
--- NOTE | 2023-08-25 19:46 | RAD REPORT ---
EXAM DESCRIPTION: CT - Head Brain Wo Cont - 08/25/2023 7:11 pm CLINICAL HISTORY: HEADACHE Headache, drowsiness COMPARISON: No comparisons TECHNIQUE: All CT scans are performed using dose optimization technique as appropriate and may inclu de automated exposure control or mA/KV adjustment according to patient size. FINDINGS: No intracranial hemorrhage, hydrocephalus or extra-axial fluid collection.No areas of brai n edema or evidence of midline shift. The paranasal sinuses and mastoids are clear. The calvarium is intact. IMPRESSION: No acute intracranial abnormality.
[2023-08-25] MEDS ORDERED: dexAMETHasone 10 MG/ML VIAL ONE (20:38)
[2023-08-25] MEDS ORDERED: NA CHLORIDE 0.9% 1,000 ML ONE (20:39)
[2023-08-25] MEDS ORDERED: KETOROLAC 30 MG/ML INJ ONE (20:39)
--- NOTE | 2023-08-25 21:27 | EDPHYS ---
Physician Documentation [facility] Name: Astrid Diaz Age: 32 yrs Sex: Female : 1990 Arrival Date: 08/25/2023 Time: 18:18 Bed 9 Private MD: JAYNE Physician José Miguel Maravilla HPI: 08/25 19:00 This 32 yrs old Female presents to ER via Ambulatory with complaints of Chest cp Congestion, Headache. 19:00 The patient complains of pain to the right side of head. cp 19:00 The patient describes the headache as waxing and waning. Onset: The symptoms/episode cp began/occurred 1 week(s) ago. 19:00 Associated signs and symptoms: Pertinent positives: sore throat, Pertinent negatives: cp altered mental status, fever, neck stiffness, vomiting, weakness. 19:00 Patient reports concern about headache lasting this long. cp Historical: - Allergies: 18:25 No Known Allergies; nj1 - PMHx: 18:25 None; nj1 - PSHx: 18:25 Back surgery; nj1 - Immunization history:: Client reports having NOT received the Covid vaccine. - Social history:: Smoking status: Reported history of juuling and/or vaping. ROS: 19:05 Constitutional: Negative for body aches, chills, fever, poor PO intake, cp 19:05 Eyes: Negative for injury, pain, redness, and discharge, cp 19:05 ENT: Positive for sinus congestion, sore throat, Negative for drainage from ear(s), ear pain, 19:05 Respiratory: Negative for shortness of breath, wheezing, 19:05 Abdomen/GI: Negative for abdominal pain, vomiting, diarrhea, constipation, 19:05 Neuro: Positive for headache, Negative for altered mental status, syncope, weakness, 19:05 All other systems are negative, Exam: 19:10 Constitutional: The patient appears in no acute distress, alert, awake, non-toxic, well cp developed, well nourished, 19:10 Head/Face: Normocephalic, atraumatic. cp 19:10 Eyes: Periorbital structures: appear normal, Pupils: equal, round, and reactive to light and accomodation, Extraocular movements: intact throughout, Conjunctiva: normal, no exudate, no injection, Sclera: no appreciated abnormality, Lids and lashes: appear normal, bilaterally, 19:10 ENT: External ear(s): are unremarkable, Ear canal(s): are normal, clear, TM's: bulging, is not appreciated, bilaterally, dullness, bilaterally, erythema, is not appreciated, bilaterally, Nose: nasal drainage, that is minimal, Mouth: Lips: moist, Oral mucosa: pink and intact, moist, Posterior pharynx: Airway: no evidence of obstruction, patent, Tonsils: no enlargement, no exudate, swelling, is not appreciated, erythema, that is mild, exudate, is not appreciated, tender, erythematous ulcer right side above tonsil, Voice: is normal, 19:10 Neck: ROM/movement: is normal, is supple, without pain, no range of motions limitations, no meningismus, no nuchal rigidity, 19:10 Chest/axilla: Inspection: normal, 19:10 Cardiovascular: Rate: normal, Rhythm: regular, 19:10 Respiratory: the patient does not display signs of respiratory distress, Respirations: normal, no use of accessory muscles, no retractions, labored breathing, is not present, Breath sounds: are clear throughout, no decreased breath sounds, no stridor, no wheezing, 19:10 Abdomen/GI: Inspection: abdomen appears normal, Palpation: abdomen is soft and non-tender, in all quadrants, 19:10 Skin: no rash present. 19:10 Neuro: Orientation: to person, place \T\ time. Mentation: is normal, Cerebellar function: is grossly normal, Motor: moves all fours, strength is normal, Sensation: is normal, Vital Signs: 18:23 BP 142 / 95; Pulse 91; Resp 18; Temp 98.3; Pulse Ox 100% on R/A; Weight 68.04 kg; nj1 Height 5 ft. 2 in. ; Pain 5/10; 19:12 BP 138 / 90; Pulse 90; Resp 18 S; Pulse Ox 100% on R/A; ha1 21:38 BP 127 / 84; Pulse 81; Resp 16; Temp 98; Pulse Ox 99% on R/A; rv 18:23 Body Mass Index 27.44 (68.04 kg, 157.48 cm) [facility] 18:23 Pain Scale: Adult [facility] MDM: 18:31 Patient medically screened. cp 21:26 Data reviewed: vital signs, nurses notes, lab test result(s), radiologic studies, CT cp scan. 21:26 Differential diagnosis: cluster headache, migraine, neoplasm, otitis, sinusitis, cp tension headache. I considered the following discharge prescriptions or medication management in the emergency department Medications were administered in the Emergency Department. See MAR. Counseling: I had a detailed discussion with the patient and/or guardian regarding the historical points, exam findings, and any diagnostic results supporting the discharge/admit diagnosis, lab results, radiology results, the need for outpatient follow up, a family practitioner, to return to the emergency department if symptoms worsen or persist or if there are any questions or concerns that arise at home. Response to treatment: the patient's symptoms have markedly improved after treatment, and as a result, I will discharge patient. 08/25 18:55 Order name: Strep; Complete Time: 20:17 08/25 20:39 Interpretation: Reviewed. 08/25 18:55 Order name: SARS-COV-2 Antigen Rapid; Complete Time: 20: 08/25 18:55 Order name: Influenza Screen (a \T\ B); Complete Time: 20:17 08/25 18:55 Order name: CBC with Diff; Complete Time: 20:17 08/25 20:38 Interpretation: Normal except: RBC 5.00; HGB 15.4; HCT 45.3; MPV 7.4; MN% 13.9. 08/25 18:55 Order name: CMP; Complete Time: 20:17 08/25 20:39 Interpretation: Normal except: GLUC 109; ALB 3.3; GLOB 4.4; A/G 0.8. 08/25 18:55 Order name: Urinalysis W/Microscopic; Complete Time: 20:17 08/25 20:39 Interpretation: Normal except: UBLD 1+. 08/25 18:55 Order name: PREGU; Complete Time: 20:17 08/25 19:43 Order name: Throat Culture EDMS 08/25 18:55 Order name: CT Head Brain wo Cont; Complete Time: 20:17 08/25 20:39 Interpretation: Report reviewed. 08/25 18:55 Order name: IV; Complete Time: 19:10 cp Administered Medications: 20:30 Drug: NS 0.9% IV 1000 ml IV at 1 bolus Per protocol; 1000 mL bolus Route: IV; Rate: 1 ha1 bolus; Site: right antecubital; 21:37 Follow up: IV Status: Completed infusion; IV Intake: 1000ml rv 20:35 Drug: Ketorolac IVP 15 mg IVP once Route: IVP; Site: right antecubital; ha1 21:38 Follow up: Response: No adverse reaction rv 20:36 Drug: Dexamethasone IVP 10 mg IVP once; (not to exceed 40 mg) Route: IVP; Site: right ha1 antecubital; 21:37 Follow up: Response: No adverse reaction rv Disposition Summary: 08/25/23 21:27 Discharge Ordered Notes: Location: Home cp Problem: new cp Symptoms: have improved cp Condition: Stable cp Diagnosis - Headache cp - Nasal congestion cp - Other forms of stomatitis cp Followup: cp - With: Private Physician - When: next week - Reason: Recheck today's complaints Discharge Instructions: - Discharge Summary Sheet cp - Migraine Headache cp - Stomatitis cp Forms: - Medication Reconciliation Form cp - Thank You Letter cp - Antibiotic Education cp - Prescription Opioid Use cp - Patient Portal Instructions cp - Leadership Thank You Letter cp Prescriptions: - Fioricet 50-300-40 mg Oral capsule - take 1 capsule ORAL route every 8 hours as needed for pain; 20 capsule; cp Refills: 0, Product Selection Permitted - Flonase Allergy Relief 50 mcg/actuation Nasal spray, suspension - spray 1 spray INTRANASAL route 2 times per day as needed for nasal congestion; cp administer into each nostril; 1 unit; Refills: 0, Product Selection Permitted Signatures: Dispatcher [employer] EDJosé Miguel Bazan PA PA cp Nicki Beard RN RN ha1 Dea Paul RN RN nj1 Shaan Washington RN rv
--- NOTE | 2023-08-25 21:27 | ER ---
Nurse's Notes [facility] Name: Astrid Diaz Age: 32 yrs Sex: Female : 1990 Arrival Date: 08/25/2023 Time: 18:18 Bed 9 Private MD: Diagnosis: Headache;Nasal congestion;Other forms of stomatitis Presentation: 08/25 18:23 Chief complaint: Patient states: Migraines on/off for a week along with taste of blood nj1 (on/off). Coronavirus screen: Vaccine status: Patient reports being unvaccinated. Ebola Screen: Patient denies travel to an Ebola-affected area in the 21 days before illness onset. Initial Sepsis Screen: Does the patient meet any 2 criteria? HR > 90 bpm. No. Patient's initial sepsis screen is negative. Does the patient have a suspected source of infection? No. Patient's initial sepsis screen is negative. Risk Assessment: Do you want to hurt yourself or someone else? Patient reports no desire to harm self or others. Onset of symptoms was August 18, 2023. 18:23 Method Of Arrival: Ambulatory [facility] 18:23 Acuity: GENESIS 3 nj1 Triage Assessment: 18:56 Headache History: The patient has had previous headaches and this one is similar to 1 previous episodes. 19:30 Pain: Denies pain. Pain began suddenly, Is Also complains of. rv Historical: - Allergies: 18:25 No Known Allergies; nj1 - PMHx: 18:25 None; nj1 - PSHx: 18:25 Back surgery; nj1 - Immunization history:: Client reports having NOT received the Covid vaccine. - Social history:: Smoking status: Reported history of juuling and/or vaping. Screenin:[facility] ED Fall Risk Assessment (Adult) History of falling in the last 3 months, ha1 including since admission No falls in past 3 months (0 pts) Confusion or Disorientation No (0 pts) Intoxicated or Sedated No (0 pts) Impaired Gait No (0 pts) Mobility Assist Device Used No (0 pt) Altered Elimination No (0 pt) Score/Fall Risk Level 0 - 2 = Low Risk Oriented to surroundings, Maintained a safe environment, Educated pt \T\ family on fall prevention, incl call for assistance when getting out of bed, Hourly rounding (assess needs \T\ fall precautionary measures) done. Abuse screen: Denies threats or abuse. Denies injuries from another. Nutritional screening: No deficits noted. Tuberculosis screening: No symptoms or risk factors identified. Assessment: 18:26 General: Appears comfortable, Behavior is calm, cooperative. Pain: Complains of pain in ha1 headache Pain does not radiate. Pain currently is 7 out of 10 on a pain scale. Quality of pain is described as pressure. Neuro: Level of Consciousness is awake, alert, obeys commands, Oriented to person, place, time, situation. Cardiovascular: Capillary refill < 3 seconds Patient's skin is warm and dry. Respiratory: Reports nasal congestion Airway is patent Respiratory effort is even, unlabored, Respiratory pattern is regular, symmetrical. Musculoskeletal: Circulation, motion, and sensation intact. Range of motion: intact in all extremities. 19:30 Reassessment: Patient and/or family updated on plan of care and expected duration. Pain ha1 level reassessed. Patient is alert, oriented x 3, equal unlabored respirations, skin warm/dry/pink. Vital Signs: 18:23 BP 142 / 95; Pulse 91; Resp 18; Temp 98.3; Pulse Ox 100% on R/A; Weight 68.04 kg; nj1 Height 5 ft. 2 in. ; Pain 5/10; 19:12 BP 138 / 90; Pulse 90; Resp 18 S; Pulse Ox 100% on R/A; ha1 21:38 BP 127 / 84; Pulse 81; Resp 16; Temp 98; Pulse Ox 99% on R/A; rv 18:23 Body Mass Index 27.44 (68.04 kg, 157.48 cm) [facility] 18:23 Pain Scale: Adult [facility] ED Course: 18:20 Patient arrived in ED. mr 18:23 José Miguel Sanchez PA is PHCP. cp 18:23 José Miguel Maravilla MD is Attending Physician. cp 18:25 Triage completed. [facility] 18:26 Arm band placed on right wrist. [facility] 18:26 Patient has correct armband on for positive identification. Bed in low position. Call [facility] light in reach. Side rails up X 1. 18:50 Inserted saline lock: 20 gauge in right antecubital area, using aseptic technique. [facility] Blood collected. 18:53 Nicki Beard RN is Primary Nurse. ha1 19:10 PREGU Sent. ha1 19:10 Urinalysis W/Microscopic Sent. ha1 19:11 CT Head Brain wo Cont In Process Unspecified. EDMS 19:11 CMP Sent. ha1 19:11 CBC with Diff Sent. ha1 21:38 No provider procedures requiring assistance completed. IV discontinued, intact, rv bleeding controlled, No redness/swelling at site. Pressure dressing applied. Administered Medications: 20:30 Drug: NS 0.9% IV 1000 ml IV at 1 bolus Per protocol; 1000 mL bolus Route: IV; Rate: 1 ha1 bolus; Site: right antecubital; 21:37 Follow up: IV Status: Completed infusion; IV Intake: 1000ml rv 20:35 Drug: Ketorolac IVP 15 mg IVP once Route: IVP; Site: right antecubital; ha1 21:38 Follow up: Response: No adverse reaction rv 20:36 Drug: Dexamethasone IVP 10 mg IVP once; (not to exceed 40 mg) Route: IVP; Site: right ha1 antecubital; 21:37 Follow up: Response: No adverse reaction rv Medication: 18:56 VIS not applicable for this client. ha1 Intake: 21:37 IV: 1000ml; Total: 1000ml. rv Outcome: 21:27 Discharge ordered by MD. cp 21:38 Discharged to home ambulatory, rv 21:38 Condition: improved 21:38 Discharge instructions given to patient, Instructed on discharge instructions, follow up and referral plans. medication usage, Demonstrated understanding of instructions, follow-up care, medications, Prescriptions given X 2, 21:39 Patient left the ED. rv Signatures: Dispatcher [employer] EDMS Katherine Sorto, Reg Reg mr José Miguel Sanchez PA PA cp Shaan Washington, RN RN rv Nicki Beard, LESLEY RN ha1 Dea Paul RN RN nj1
[2023-08-25 22:23] VITALS: BP 127/84; TEMP 98; O2SAT 99
== END 2023-08-25 21:39 | disposition home or self-care (01) ==
LOC: ER 18:18
DX: R51.9 Headache, unspecified (principal); R09.81 Nasal congestion; K12.1 Other forms of stomatitis; Z11.52 Encounter for screening for COVID-19
CPT/HCPCS: 36415; 70450; 80053; 81001; 81025; 85025; 87070; 87081; 87804; 87811; 96361; 96374; 96375; 99284; J1100; J7030

== ENCOUNTER 2024-02-19 00:45 | Emergency (ER) | payer OTHER ==
--- OUTSIDE RECORDS SUMMARY | 2024-02-19 00:49 | XMS REPORT | Continuity of Care Document ---
Author Name Unknown Address [address] [facility] [address]. [address] [place], [place] [id number] [place] [address] thconnect Address [address] [facility]. [address] [place] [address] Care Team Providers Care Board Handler Name Role Phone SHERRIE ZHANG Primary Care Physician Unav ailable CANDICE DE GUZMAN Attending Clinician Unavaila ble Vicente WHSherrie REEVES Attending Clinician + Candice De Guzman CNM Attending Clinician [phone] Horacio SUTTON, Carmelo Ortiz Attending Clinician Unacheri schafer Doctor Unassigned, [place] Attending Clinician U SKYLA Romeo Attending Clinician Unavailable Provider, Jhonatan-Rmchp Temp Attending Clinician Edna Skyla Hill NP Attending Clinician [phone] SHERRIE ZHANG Attending Clinician Unavail able Anna SUTTON, Tiff Muñoz Attending Clinician Edna vailable NETTIE HARMAN Attending Clinician Unavailab Ezequiel Nichole Attending Clinician Unavailable Ezequiel Ortiz Attending Clinician [phone] TERESSA MOSES Attending Clinician Unavailabl e Nurse, Jhon[facility] Attending Clinician Un available Teressa Cruz Attending Clinician [phone] Nettie German Attending Clinician + [phone] LabKarolRmchp Attending Clinician Unavailable Payers Payer Name Policy Type Policy Number Effective Date Expirati on Date Source [facility] [id number] 2024 00:00:00 Problems Condition Name Condition Details Condition Category Status Onset Date Resolution Date Last Treatment Date Treating Clinician Comments Source Nexplanon in place Nexplanon in place Disease Active 01-31 00:00: 00 [facility] Other general counseling and advice for contracept carmen management Other general counseling and advice for contracept carmen management Disease Active 2021-10 2- 00:00: 00 [facility] Papanicola 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 [facility] Well woman exam Well woman exam Disease Active 04-29 00:00: 00 [facility] Dysuria Dysuria Disease Active 04-29 00:00: 00 [facility] IUD (intrauter ine device) in place IUD (intrauter ine device) in place Disease Active 04-29 00:00: 00 [facility] Encounter for surveillan ce of other contracept carmen Encounter for surveillan ce of other contracept carmen Disease Active 04-29 00:00: 00 [facility] IUD (intrauter ine device) in place IUD (intrauter ine device) in place Disease Active 04-29 00:00: 00 [facility] Allergies, Adverse Reactions, Alerts Allergy Name Allergy Type Status Severity Reaction(s) Onset Date Inactive Date Treating Clinician Comments Source NO KNOWN ALLERGIE S Drug Class Active [facility] Social History Social Habit Start Date Stop Date Quantity Comments Source Gender identity [facility] Sexual orientation [facility] History SDOH Alcohol Frequency [facility] History SDOH Alcohol Std Drinks [facility] History SDOH Alcohol Binge [facility] Alcohol intake 2023-06-29 00:00:00 2023-06-29 00:00:00 Current drinker of alcohol (finding) [facility] History of Social function 2023-06-19 00:00:00 2023-06-19 00:00:00 [facility] Exposure to SARS-CoV-2 (event) 2023-01-21 00:00:00 2023-01-31 09:44:00 Not sure [facility] Tobacco use and exposure 2022-09-16 00:00:00 2022-09-16 00:00:00 Smokeless tobacco non-user [facility] Tobacco Comment 2022-09-16 00:00:00 2022-09-16 00:00:00 vapes [facility] Alcohol Comment 2021-04-29 00:00:00 2021-04-29 00:00:00 occasional [facility] Sex Assigned At 1990 00:00:00 1990 00:00:00 [facility] Smoking Status Start Date Stop Date Source Never smoked tobacco [facility] Medications Ordered Medication Name Filled Medication Name Start Date Stop Date Current Medication? Ordering Clinician Indication Dosage Frequency Signature (SIG) Comments Components Source NUVARING 0.12-0.015 mg/24 hr vaginal insert 10-20 00:00: 00 Yes [id number] 1{each} Insert 1 Each into vagina once every month. Insert vaginally and leave in place for 3 consecutiv e weeks, then remove for 1 week. [facility] NUVARING 0.12-0.015 mg/24 hr vaginal insert 2022-10 00:00: 00 10-20 00:00 :00 No [id number] 1{each} Insert 1 Each into vagina once every month. Insert vaginally and leave in place for 3 consecutiv e weeks, then remove for 1 week. [facility] NUVARING 0.12-0.015 mg/24 hr vaginal insert 06-29 00:00: 00 09-25 00:00 :00 No [id number] 1{each} Insert 1 Each into vagina once every month. Insert vaginally and leave in place for 3 consecutiv e weeks, then remove for 1 week. [facility] fluconazole 150 mg tablet 2023-0 9-11 00:00: 00 06-24 04:59 :00 No [id number] 150mg Take 1 tablet by mouth every 72 (seventy-t wo) hours for 2 doses. [facility] etonogestre L (NEXPLANON) implant 68 mg 10-31 22:30: 00 10-31 21:44 :00 No [id number] 68mg [facility] No known medications 10-31 15:46: 00 No No known medication s [facility] No known medications 10-17 09:06: 33 No No known medication s [facility] No known medications 2021-10 14:15: 13 No No known medication s [facility] ketorolac (TORADOL) injection 15 mg 03-09 03:15: 00 03-09 02:23 :00 No 15mg 15 mg, Intramuscu lar, ONCE, 1 dose, On Mon03/08/22 at 2215, IGNACIO
Fa culty member approving Restricted medication : Ezequiel DOLL [facility] ibuprofen 600 mg tablet 03-08 00:00: 00 09-16 00:00 :00 No [id number] 600mg Take 1 tablet by mouth every 6 (six) hours as needed for Pain (scale 4-6). [facility] ampicillin 500 mg capsule 05-31 00:00: 00 06-11 04:59 :00 No [id number] 500mg Take 1 capsule by mouth every 6 (six) hours for 10 days. [facility] terconazole 0.8 % vaginal cream 05-19 00:00: 00 09-16 00:00 :00 No [id number] 1{appli cator} Insert 1 Applicator into vagina at bedtime. [facility] No known medications No Un cyril [facility] No known medications No Un cyril [facility] Vital Signs Vital Name Observation Time Observation Value Comments S ource Systolic blood pressure 2023-06-29 16:09:00 123 mm[Hg] [facility] Diastolic blood pressure 2023-06-29 16:09:00 79 mm[Hg] [facility] Heart rate 2023-06-29 16:09:00 89 /min Un[facility] Body temperature 2023-06-29 16:09:00 35.94 Rosy [facility] Respiratory rate 2023-06-29 16:09:00 18 /min [facility] Body height 2023-06-29 16:09:00 154.9 cm [facility] Body weight 2023-06-29 16:09:00 66.31 kg [facility] BMI 2023-06-29 16:09:00 27.62 kg/m2 [facility] Systolic blood pressure 2023-06-19 14:45:00 113 mm[Hg] [facility] Diastolic blood pressure 2023-06-19 14:45:00 77 mm[Hg] [facility] Heart rate 2023-06-19 14:45:00 83 /min [facility] Body temperature 2023-06-19 14:45:00 36.11 Rosy [facility] Respiratory rate 2023-06-19 14:45:00 18 /min [facility] Body height 2023-06-19 14:45:00 154.9 cm [facility] Body weight 2023-06-19 14:45:00 67.274 kg [facility] BMI 2023-06-19 14:45:00 28.02 kg/m2 [facility] Systolic blood pressure 2023-01-31 14:45:00 118 mm[Hg] [facility] Diastolic blood pressure 2023-01-31 14:45:00 80 mm[Hg] [facility] Heart rate 2023-01-31 14:45:00 83 /min [facility] Body temperature 2023-01-31 14:45:00 36.28 Rosy [facility] Respiratory rate 2023-01-31 14:45:00 18 /min [facility] Body height 2023-01-31 14:45:00 154.9 cm [facility] Body weight 2023-01-31 14:45:00 64.774 kg [facility] BMI 2023-01-31 14:45:00 26.98 kg/m2 [facility] Systolic blood pressure 2022-10-31 16:40:00 119 mm[Hg] [facility] Diastolic blood pressure 2022-10-31 16:40:00 81 mm[Hg] [facility] Heart rate 2022-10-31 16:40:00 76 /min [facility] Body temperature 2022-10-31 16:40:00 36.67 Rosy [facility] Respiratory rate 2022-10-31 16:40:00 18 /min [facility] Body weight 2022-10-31 16:40:00 63.504 kg [facility] BMI 2022-10-31 16:40:00 26.45 kg/m2 [facility] Systolic blood pressure 2022-10-17 14:51:00 119 mm[Hg] [facility] Diastolic blood pressure 2022-10-17 14:51:00 71 mm[Hg] [facility] Heart rate 2022-10-17 14:51:00 89 /min [facility] Body temperature 2022-10-17 14:51:00 37.17 Rosy [facility] Respiratory rate 2022-10-17 14:51:00 20 /min [facility] Body height 2022-10-17 14:51:00 154.9 cm [facility] Body weight 2022-10-17 14:51:00 63.64 kg [facility] BMI 2022-10-17 14:51:00 26.51 kg/m2 [facility] Systolic blood pressure 2022-09-16 20:01:00 133 mm[Hg] [facility] Diastolic blood pressure 2022-09-16 20:01:00 84 mm[Hg] [facility] Heart rate 2022-09-16 20:01:00 81 /min [facility] Body temperature 2022-09-16 20:01:00 36.72 Rosy [facility] Respiratory rate 2022-09-16 20:01:00 18 /min [facility] Body height 2022-09-16 20:01:00 154.9 cm [facility] Body weight 2022-09-16 20:01:00 64.581 kg [facility] BMI 2022-09-16 20:01:00 26.90 kg/m2 [facility] Systolic blood pressure 2022-03-09 02:27:24 127 mm[Hg] [facility] Diastolic blood pressure 2022-03-09 02:27:24 90 mm[Hg] [facility] Heart rate 2022-03-09 02:27:24 85 /min [facility] Body temperature 2022-03-09 02:27:24 36.83 Rosy [facility] Respiratory rate 2022-03-09 02:27:24 18 /min [facility] Body height 2022-03-09 01:27:00 154.9 cm [facility] Body weight 2022-03-09 01:27:00 64.864 kg [facility] BMI 2022-03-09 01:27:00 27.02 kg/m2 [facility] Oxygen saturation in Arterial blood by Pulse oximetry 2022-03-09 01:27:00 100 /min [facility] Systolic blood pressure 2022-03-09 00:51:00 119 mm[Hg] [facility] Diastolic blood pressure 2022-03-09 00:51:00 77 mm[Hg] [facility] Heart rate 2022-03-09 00:51:00 82 /min [facility] Body temperature 2022-03-09 00:51:00 36.89 Rosy [facility] Respiratory rate 2022-03-09 00:51:00 19 /min [facility] Body height 2022-03-09 00:51:00 154.9 cm [facility] Body weight 2022-03-09 00:51:00 64.864 kg [facility] BMI 2022-03-09 00:51:00 27.02 kg/m2 [facility] Oxygen saturation in Arterial blood by Pulse oximetry 2022-03-09 00:51:00 100 /min [facility] Systolic blood pressure 2021-04-29 12:59:00 108 mm[Hg] [facility] Diastolic blood pressure 2021-04-29 12:59:00 73 mm[Hg] [facility] Heart rate 2021-04-29 12:59:00 80 /min [facility] Body temperature 2021-04-29 12:59:00 37.06 Rosy [facility] Respiratory rate 2021-04-29 12:59:00 16 /min [facility] Body height 2021-04-29 12:59:00 157.5 cm [facility] Body weight 2021-04-29 12:59:00 60.963 kg [facility] BMI 2021-04-29 12:59:00 24.58 kg/m2 [facility] Procedures Procedure Date / Time Performed Performing Clinicia n Source DISCLOSURE AND CONSENT, MEDICAL AND SURGICAL PROCEDURES 2023-06-30 05:01:00 Doctor Unassigned, [place] [facility] PATIENT FINANCIAL POLICY 2023-01-31 14:32:57 Doctor Unassigned, [place] [facility] DISCLOSURE AND CONSENT MEDICAL & SURGICAL PROCEDURES - FEMALM 2022-10-31 06:01:00 Doctor Unassigned, [place] [facility] ASSIGNMENT OF BENEFITS 2022-09-16 19:50:12 Docto r Unassigned, [place] [facility] Encounters Start Date/Time End Date/Time Encounter Type Admission Type Attending Clinicians Care Facility Care Department Encounter ID Source 2024-02-14 10:00:00 2024-02-14 10:00:00 Outpatient CANDICE CARMONA [facility] [id number] [facility] 2023-10-24 00:00:00 2023-10-24 00:00:00 Telephone Sherrie Zhang [facility] 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 1.2.840.114 350.1.13.10 4.2.7.2.686 [id number] [facility] 2023-10-20 00:00:00 2023-10-20 00:00:00 Telephone Candice De Guzman [facility] [employer] METAL WORKER [facility] CHILD [facility] 1.2.840.114 350.1.13.10 4.2.7.2.686 [id number] [facility] 2023-09-25 00:00:00 2023-09-25 00:00:00 Refill Candice De Guzman [facility] [employer] WORKER [facility]ILD [facility] 1.2.840.114 350.1.13.10 4.2.7.2.686 [id number] [facility] 2023-09-25 00:00:00 2023-09-25 00:00:00 RefCandice Louis [facility] [employer] METAL WORKER [facility] CHILD [facility] 1.2.840.114 350.1.13.10 4.2.7.2.686 [id number] [facility] 2023-09-19 09:00:00 2023-09-19 09:00:00 Outpatient R CANDICE DE GUZMAN [facility] [id number] [facility] 2023-08-28 00:00:00 2023-08-28 00:00:00 Telephone Candice De Guzman [facility] [employer] MET[employer] WORKER [facility] CHILD [facility] 1.2.840.114 350.1.13.10 4.2.7.2.686 [id number] [facility] 2023-08-25 00:00:00 2023-08-25 00:00:00 Telephone Sherrie Zhang [facility] [employer] MET[employer] WORKER [facility] CHILD [facility] 1.2.840.114 350.1.13.10 4.2.7.2.686 [id number] [facility] 2023-08-24 00:00:00 2023-08-24 00:00:00 Refill Sherrie Zhang [facility] 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 & CHILD [facility] 1.2.840.114 350.1.13.10 4.2.7.2.686 [id number] [facility] 2023-08-02 00:00:00 2023-08-02 00:00:00 Telephone Sherrie Zhang [facility] [employer] METAL WORKER [facility] CHILD [facility] 1.2.840.114 350.1.13.10 4.2.7.2.686 [id number] [facility] 2023-07-29 00:00:00 2023-07-29 00:00:00 Nurse Triage Carmelo Leonard [facility] 1.2.840.114 350.1.13.10 4.2.7.2.686 [id number] [facility] 2023-06-30 00:00:00 2023-06-30 00:00:00 Orders Only Doctor Unassigned, [place] [facility] 1.2.840.114 350.1.13.10 4.2.7.2.686 [id number] [facility] 2023-06-29 10:45:00 2023-06-29 12:02:38 Outpatient R CANDICE DE GUZMAN [facility] [id number] [facility] 2023-06-29 10:45:00 2023-06-29 12:02:38 Office Visit Candice De Guzman [facility] 1.2.840.114 350.1.13.10 4.2.7.2.686 [id number] [facility] 2023-06-19 09:15:00 2023-06-19 15:04:25 Outpatient SKYLA LIU [facility] [id number] [facility] 2023-06-19 09:15:00 2023-06-19 15:04:25 Office Visit Provider, Skyla Christianson [facility] 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 & CHILD [facility] 1.84.114 350.1.13.10 4.2.7.2.686 [id number] [facility] 2023-05-11 00:00:00 2023-05-11 00:00:00 Telephone Sherrie Zhang [facility] [employer] MET[employer] WORKER [facility] CHILD [facility] 1.840.114 350.1.13.10 4.2.7.2.686 [id number] [facility] 2023-01-31 10:00:00 2023-01-31 10:06:26 Outpatient R SHERRIE ZHANG [facility] [id number] [facility] 2023-01-31 10:00:00 2023-01-31 10:06:26 Office Visit Sherrie Zhang [facility] [employer] METAL WORKER [facility] CHILD [facility] 1.840.114 350.1.13.10 4.2.7.2.686 [id number] [facility] 2023-01-31 10:00:00 2023-01-31 10:00:00 Outpatient R SHERRIE ZHANG [facility] [id number] [facility] 2023-01-31 00:00:00 2023-01-31 00:00:00 Orders Only Doctor Unassigned, [place] [facility] 1.840.114 350.1.13.10 4.2.7.2.686 [id number] [facility] 2022-12-21 13:15:00 2022-12-21 13:15:00 Outpatient R SHERRIE ZHANG [facility] [id number] [facility] 2022-11-25 13:30:00 2022-11-25 13:30:00 Outpatient R SHERRIE ZHANG [facility] [id number] [facility] 2022-11-25 08:00:00 2022-11-25 08:00:00 Outpatient R GEGE CANDICE [facility] [id number] [facility] 2022-11-18 00:00:00 2022-11-18 00:00:00 Telephone Sherrie Zhang [facility] [employer] MET[employer] WORKER [facility]ILD [facility] 1.2.840.114 350.1.13.10 4.2.7.2.686 [id number] [facility] 2022-11-15 13:15:00 2022-11-15 13:15:00 Outpatient R SHERRIE ZHANG [facility] [id number] [facility] 2022-11-10 00:00:00 2022-11-10 00:00:00 Telephone Sherrie Zhang [facility] 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 & CHILD [facility] 1.2.840.114 350.1.13.10 4.2.7.2.686 [id number] [facility] 2022-11-02 00:00:00 2022-11-02 00:00:00 Telephone Sherrie Zhang [facility] [employer] METAL WORKER [facility] CHILD [facility] 1.2.840.114 350.1.13.10 4.2.7.2.686 [id number] [facility] 2022-10-31 15:00:00 2022-10-31 15:00:00 Office Visit Sherrie Zhang [facility] [employer] METAL WORKER [facility] CHILD [facility] 1.2.840.114 350.1.13.10 4.2.7.2.686 [id number] [facility] 2022-10-31 15:00:00 2022-10-31 10:56:14 Outpatient R SHERRIE ZHANG [facility] [id number] [facility] 2022-10-31 00:00:00 2022-10-31 00:00:00 Orders Only Doctor Unassigned, [place] [facility] 1..114 350.1.13.10 4.2.7.2.686 [id number] [facility] 2022-10-21 00:00:00 2022-10-21 00:00:00 Telephone Sherrie Zhang [facility] [employer] METAL WORKER [facility]ILD [facility] 1..114 350.1.13.10 4.2.7.2.686 [id number] [facility] 2022-10-21 00:00:00 2022-10-21 00:00:00 Nurse Triage Tiff Topete [facility] 1..114 350.1.13.10 4.2.7.2.686 [id number] [facility] 2022-10-17 08:30:00 2022-10-17 09:03:45 Outpatient R SHERRIE ZHANG [facility] [id number] [facility] 2022-10-17 08:30:00 2022-10-17 09:03:45 Office Visit Sherrie Zhang [facility] [employer] METAL WORKER [facility] CHILD [facility] 1.84.114 350.1.13.10 4.2.7.2.686 [id number] [facility] 2022-10-17 08:30:00 2022-10-17 08:30:00 Outpatient R SHERRIE ZHANG [facility] [id number] [facility] 2022-10-13 00:00:00 2022-10-13 00:00:00 Telephone Sherrie Zhang [facility] [employer] METAL WORKER [facility] CHILD [facility] 1.2.840.114 350.1.13.10 4.2.7.2.686 [id number] [facility] 2022-10-12 00:00:00 2022-10-12 00:00:00 Telephone Sherrie Zhang [facility] [employer] METAL WORKER [facility] CHILD [facility] 1.2.840.114 350.1.13.10 4.2.7.2.686 [id number] [facility] 2022-10-11 00:00:00 2022-10-11 00:00:00 Telephone Sherrie Zhang [facility] [employer] METAL WORKER [facility] 1.2840.114 350.1.13.10 4.2.7.2.686 [id number] [facility] 2022-09-20 00:00:00 2022-09-20 00:00:00 Telephone Sherrie Zhang [facility] [employer] METAL WORKER [facility] CHILD [facility] 1.2840.114 350.1.13.10 4.2.7.2.686 [id number] [facility] 2022-09-16 13:45:00 2022-09-16 14:59:34 Outpatient R SHERRIE ZHANG [facility] [id number] [facility] 2022-09-16 13:45:00 2022-09-16 14:59:34 Office Visit Sherrie Zhang [facility] [employer] METAL WORKER [facility] CHILD [facility] 1.2840.114 350.1.13.10 4.2.7.2.686 [id number] [facility] 2022-09-16 00:00:00 2022-09-16 00:00:00 Orders Only Doctor Unassigned, [place] [facility] 1.2.840.114 350.1.13.10 4.2.7.2.686 [id number] [facility] 2022-08-08 09:00:00 2022-08-08 09:00:00 Outpatient R NETTIE HARMAN [facility] [id number] [facility] 2022-03-08 20:30:00 2022-03-08 21:37:00 Emergency X Ezequiel DOLL [facility] ERT [id number] [facility] 2022-03-08 20:30:00 2022-03-08 21:37:00 Emergency Ezequiel Doll [facility] 1.840.114 350.1.13.10 4.2.7.2.686 [id number] [facility] 2022-03-08 19:15:00 2022-03-08 19:50:[address] [place] [facility] [id number] [facility] 2022-03-08 19:15:00 2022-03-08 19:50:45 Nurse Visit Nurse, [facility] 1.840.114 350.1.13.10 4.2.7.2.686 [id number] 370 [id number] [facility] 2021-10-15 00:00:00 2021-10-15 00:00:00 Telephone Nettie Harman [facility] 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 CHILD [facility] 1.2840.114 350.1.13.10 4.2.7.2.686 [id number] 107 [id number] [facility] 2021-05-31 00:00:00 2021-05-31 00:00:00 Telephone Haley Harmanazul Hernandez [facility] JOURNEYMAN SHEET METAL WORKER [facility] & CHILD [facility] 1.2.840.114 350.1.13.10 4.2.7.2.686 [id number] 107 [id number] [facility] 2021-05-25 13:07:25 2021-05-25 14:08:05 Box Packer Visit Lab, 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 WORKER [facility] CHILD [facility] 1.2.840.114 350.1.13.10 4.2.7.2.686 [id number] 107 [id number] [facility] 2021-05-19 00:00:00 2021-05-19 00:00:00 Telephone Martin Nettie Hernandez [facility] JOURNEYMAN SHEET METAL WORKER [facility] 1.2.840.114 350.1.13.10 4.2.7.2.686 [id number] 107 [id number] [facility] 2021-05-03 00:00:00 2021-05-03 00:00:00 Telephone Haley Harmanazul Hernandez [facility] 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 SHEET METAL WORKER [facility] CHILD [facility] 1.2.840.114 350.1.13.10 4.2.7.2.686 [id number] 107 [id number] [facility] 2021-04-29 07:52:14 2021-04-29 08:34:41 Office Visit Nettie Harman [facility] JOURNEYMAN SHEET METAL WORKER [facility] 1.2.840.114 350.1.13.10 4.2.7.2.686 [id number] 107 [id number] [facility] 2021-04-29 07:45:00 2021-04-29 07:45:00 Outpatient NETTIE MELENDEZ [facility] [id number] [facility] Notes Date/Time Note Provider Source 2023-10-24 15:00:55 Zgcz19/d6p01sD5GK02a E4mL4R5msLG L3vI7cie6GUjYkHrajVBWKOcNopK7kG A/3010-85-41M95:00:55 Pt notified she needs WWE prior to any more refills. Pt states she applied in September for insurance and it is still processing. Pt states she still has one more Nuvaring and will call to find status of application. She will call back and schedule WWE as soon as insurance is approved. ADAN DIAZ RN 10/24/2023 3:03 PM 15243-9Gybzfyzrw encounter DzzdFP0674-97-73O60:03:38Teleph one encounter NoteTXT1.2.840.034271.1.13.104. 2.7.2.238896|[id number] ble for patient nbzr53639-4ZygkJLMMFYTMTBZGoxqt tted C-CDA narrative [id number] Rodriguez RN[address] RcxlFyokebmhqGqhnsnkfhGAMQ27130 12053YBJVQLZGQILVSAJOOCCRNC7550 -01-16T15:03:381.2.840.456061.1 .72.3.15|1.2.840.098835.1.13.10 4.2.7.2.727879_[id number] Adan Diaz RN [facility] 2023-10-24 14:22:34 6mVcjaKAwmRMyQZizirv 6g0yQlzf6vH +O1QmsUtAhz39/+eUBHRSL8NcS7xBE0 nu0533-76-22U77:22:34 We received 90 day prescription refill for:Etonogestere Ethynyl Est Vag RingWalgreensP [phone] [phone] signed by Ofelia Schumacher at 10/24/2023 2:24 PM [id number] encounter KgqsOE0426-82-89U17:24:54Teleph one encounter NoteTXT1.2.840.955179.1.13.104. 2.7.2.418709|[id number] ble for patient tjgn36341-7GrjqAUKBWITFIKVGsrgq tted C-CDA narrative [id number] L Smith[address] WvqsMzqribrjhNvbjdngrzCVRE03638 02898EOQHELLJTYOVVCARCPRMSS7694 -01-16T14:24:541.2.840.081837.1 .72.3.15|1.2.840.878970.1.13.10 4.2.7.2.727879_[id number] Ofelia Schumacher [facility] 2023-10-20 15:54:48 QBZKTub1Ah3+0/hZoBfJ RhIdwLsP9B3 jzDCRi5ssD0msocP/hE86BA+/e89rUU BE5638-89-72W12:54:48 Spoke with patient and she will call us and let us know when she has active coverage. 04732-8Yzmhsohkd encounter UnpbMH8997-03-86S05:57:41Teleph one encounter NoteTXT1.2.840.738396.1.13.104. 2.7.2.492254|[id number] ble for patient upbp57600-6KzxtJYWQOIKRNFRYkspe tted C-CDA narrative [id number] [address]TXTX[address] 29973SYTDXGGKVIPUVMLLLRHCRU3593 -01-12T15:57:411.2.840.313406.1 .72.3.15|1.2.840.520162.1.13.10 4.2.7.2.727879_[id number] Maikel López [facility] 2023-10-20 15:13:27 ZPiweVmcaG4P8rTT+aBq mUDWAvvPDIJ 5g//mhbR4Z3WQ4/pgB5QGM3vLsw3N70 QK9077-01-25B31:13:27 Kris Diaz is a 32 year old femalePatient is calling requesting her control refill be sent to her pharmacy . She advise that her insurance is pending renewal and she can't go without .Please contact Patient [id number] [place], [place] [address] [address] [employer]Phone: Rvonnubiyvbtey signed by Heather Maravilla at 10/20/2023 3:18 PM MQD00729-8Mufiashmy encounter MgwzBW3911-01-24P16:18:06Teleph one encounter NoteTXT1.2.840.820523.1.13.104. 2.7.2.582432|[id number] ble for patient ales25443-3CfdrQJDWTSJMNMCZzhxf tted C-CDA narrative [id number] Angel [address] 68052WTYNRTOYVYXHKARDPAAPCS4865 -01-12T15:18:061.2.840.514877.1 .72.3.15|1.2.840.088601.1.13.10 4.2.7.2.727879_[id number] Heather Maravilla [facility] 2023-05-11 14:33:50 Af37vGS/d4uRX0EFGRF0 JVZMiTzNZQD j9eMI2F5Swzrl5BCJnWkQw4ym//JN6h cT8904-62-50P05:33:50 Patient stated she had her nexplanon inserted in 10/2022. Stated she has been on her cycle for 1.5 weeks now and her cycles are usually about 4 days. Stated this is the first time she has had her cycle this long. Denies any heavy bleeding, stated she will sometimes have a moderate flow or sometimes just spotting. Informed patient cycles can be irregular with nexplanon and can continue to monitor since this is the first time her cycle is longer than usual. Informed if cycle continues to last longer than usual can call back for appt. Patient stated she is going to do research for a BTL or another form of control and then might call back for removal. ER warnings given, verbalized understanding. 53063-1Zkihyknhl encounter XxpxAQ3405-08-19W33:46:01Teleph one encounter NoteTXT1.2.840.972664.1.13.104. 2.7.2.198303|[id number] [facility] lhpj19717-2TnqiUF749591891Nfeln eduard Gillespie [address] CvvkMdhtkliuwCsumiveppOMGN[address] 57960SCFXQSERYBBNFLOAVRAYUQ6348 -08-03T14:46:011.2.840.124920.1 .72.3.15|1.2.840.137421.1.13.10 4.2.7.2.727879_[id number] Katarina Gillespie LVN [facility] 2023-05-11 13:57:53 u/doqMWzv/FDjubDV9z2 P4TyQ5nVQ9Y Kliby3R97x3HfLRleNFD/HcS5aWaUto 0t8952-86-44Q92:57:53 Kris Diaz is a 32 year old femalePt is calling requesting to speak with a nurse because she is having constant vaginal bleeding x 1week with nexplanon control. Please contact pt at [phone]. 42437-8Azyjrwjao encounter WsuwTR3340-69-80M77:59:02Teleph one encounter NoteTXT1.2.840.342302.1.13.104. 2.7.2.417243|[id number] ble for patient jwtb77311-2MitvWY17022585Alxepn [address] IcgsPbytklkieAhqqiczocNTOE33935 23991WIAKTPEHFUWRJMMDVOHZBC6969 -08-03T13:59:021.2.840.133178.1 .72.3.15|1.2.840.599533.1.13.10 4.2.7.2.727879_[id number] Sandrita Troncoso [facility]"
[2024-02-19] MEDS ORDERED: dexAMETHasone 10 MG/ML VIAL ONE (01:07)
[2024-02-19] MEDS ORDERED: CEFTRIAXONE 1000 MG/VIAL ONE (01:07)
[2024-02-19] MEDS ORDERED: WATER FOR INJ,STERILE 10 ML ONE (01:07)
--- NOTE | 2024-02-19 01:07 | ER ---
Nurse's Notes [facility] Name: Astrid Diaz Age: 33 yrs Sex: Female : 1990 Arrival Date: 02/19/2024 Time: 00:45 Bed 11 Private MD: Diagnosis: Otitis media, unspecified, left ear Presentation: 02/18 00:59 Chief complaint: Patient states: I have been sick with cough and congestion for the jb4 past few days. That's mostly clearing up, but now I am having ear pain, it hurts to swallow, burp, anything. I am having pain down the left side of my neck and my tooth hurts on the bottom left side. Coronavirus screen: At this time, the client does not indicate any symptoms associated with coronavirus-19. Ebola Screen: No symptoms or risks identified at this time. Initial Sepsis Screen: Does the patient meet any 2 criteria? No. Patient's initial sepsis screen is negative. Does the patient have a suspected source of infection? No. Patient's initial sepsis screen is negative. Risk Assessment: Do you want to hurt yourself or someone else? Patient reports no desire to harm self or others. Onset of symptoms was February 19, 2024. Transition of care: patient was not received from another setting of care. 00:59 Method Of Arrival: Ambulatory jb4 00:59 Acuity: GENESIS 4 jb4 Historical: - Allergies: 01:00 No Known Allergies; jb4 - PMHx: 01:00 None; jb4 - PSHx: 01:00 back surgery; jb4 - Immunization history:: Adult Immunizations up to date. - Infectious Disease History:: Denies. - Social history:: Smoking status: Patient denies any tobacco usage or history of. Screenin:21 [facility] ED Fall Risk Assessment (Adult) History of falling in the last 3 months, jb4 including since admission No falls in past 3 months (0 pts) Confusion or Disorientation No (0 pts) Intoxicated or Sedated No (0 pts) Impaired Gait No (0 pts) Mobility Assist Device Used No (0 pt) Altered Elimination No (0 pt) Score/Fall Risk Level 0 - 2 = Low Risk Oriented to surroundings, Maintained a safe environment. Abuse screen: Denies threats or abuse. Nutritional screening: No deficits noted. Tuberculosis screening: No symptoms or risk factors identified. Assessment: 01:21 General: Appears in no apparent distress. uncomfortable, Behavior is calm, cooperative, jb4 appropriate for age. Pain: Complains of pain in left ear. Neuro: Level of Consciousness is awake, alert, obeys commands, Oriented to person, place, time, situation. Cardiovascular: Patient's skin is warm and dry. Respiratory: Airway is patent Respiratory effort is even, unlabored, Respiratory pattern is regular, symmetrical. GI: No signs and/or symptoms were reported involving the gastrointestinal system. : No signs and/or symptoms were reported regarding the genitourinary system. EENT: Tympanic membrane reddened on left ear Ear canal clear on left ear. Derm: Skin is intact, Skin is pink, warm \T\ dry. Musculoskeletal: Circulation, motion, and sensation intact. Range of motion: intact in all extremities. Vital Signs: 01:00 BP 148 / 103; Pulse 96; Resp 16; Temp 97.9(TE); Pulse Ox 98% on R/A; Weight 63.5 kg jb4 (R); Height 5 ft. 2 in. (R); 01:00 Body Mass Index 25.61 (63.50 kg, 157.48 cm) jb4 ED Course: 00:48 Patient arrived in ED. gm2 00:58 Lilly Yost PA-C is PHCP. sb4 00:58 Jose Alberto Pérez MD is Attending Physician. sb4 01:00 Triage completed. jb4 01:00 Arm band placed on right wrist. jb4 01:21 Patient has correct armband on for positive identification. Bed in low position. Call jb4 light in reach. Side rails up X 1. Provided Education on: Plan of care. 01:21 No provider procedures requiring assistance completed. Patient did not have IV access jb4 during this emergency room visit. Administered Medications: 01:20 Drug: Dexamethasone IM 10 mg IM once Route: IM; Site: right deltoid; jb4 01:34 Follow up: Response: No adverse reaction jb4 01:21 Drug: Rocephin (cefTRIAXone) IM 1 grams IM once Route: IM; Site: right gluteus; jb4 01:34 Follow up: Response: No adverse reaction jb4 Medication: 01:21 VIS not applicable for this client. jb4 Outcome: 01:06 Discharge ordered by . sb4 01:34 Patient left the ED. jb4 01:34 Discharged to home ambulatory, jb4 01:34 Condition: stable 01:34 Discharge instructions given to patient, Instructed on discharge instructions, follow up and referral plans. medication usage, Demonstrated understanding of instructions, follow-up care, medications, Prescriptions given X 1, Signatures: Tra Pedraza RN RN Lilly Nguyen PA-C PAMena Damon [facility]
--- NOTE | 2024-02-19 01:07 | EDPHYS ---
Physician Documentation [facility] Name: Astrid Diaz Age: 33 yrs Sex: Female : 1990 Arrival Date: 02/19/2024 Time: 00:45 Bed 11 Private MD: ED Physician Jose Alberto Pérez HPI: 02/18 01:03 This 33 yrs old Female presents to ER via Ambulatory with complaints of Ear sb4 Pain. 01:03 The patient presents with pain. sb4 01:04 patient states she has been sick with URI symptoms for about 10 days. states they have sb4 mostly resolved but she is experiencing a lot of pain in her left ear that has now caused her left face/jaw to become swollen. denies any known fevers. has not been on any antibiotics or steroids. Historical: - Allergies: 01:00 No Known Allergies; jb4 - PMHx: 01:00 None; jb4 - PSHx: 01:00 back surgery; jb4 - Immunization history:: Adult Immunizations up to date. - Infectious Disease History:: Denies. - Social history:: Smoking status: Patient denies any tobacco usage or history of. ROS: 01:04 Constitutional: Negative for fever, chills, and weight loss, sb4 01:04 ENT: Positive for ear pain, 01:04 All other systems are negative, Exam: 01:04 Eyes: Extra-ocular motions intact. Periorbital areas with no swelling, redness, or sb4 edema. Skin: Warm, dry with normal turgor. Normal color with no rashes, no lesions, and no evidence of cellulitis. 01:04 Constitutional: The patient appears alert, awake, uncomfortable, 01:04 Head/face: Noted is swelling, that is mild, of the left jaw, 01:04 ENT: Ear canal(s): erythema, that is moderate, of the left canal, TM's: erythema, that is moderate, on the left, Posterior pharynx: is normal, airway is patent, Dental exam: normal, no acute changes, Vital Signs: 01:00 BP 148 / 103; Pulse 96; Resp 16; Temp 97.9(TE); Pulse Ox 98% on R/A; Weight 63.5 kg jb4 (R); Height 5 ft. 2 in. (R); 01:00 Body Mass Index 25.61 (63.50 kg, 157.48 cm) jb4 MDM: 01:02 Patient medically screened. sb4 01:04 Data reviewed: vital signs, nurses notes, and as a result, I will discharge patient. sb4 Counseling: I had a detailed discussion with the patient and/or guardian regarding the historical points, exam findings, and any diagnostic results supporting the discharge/admit diagnosis, to return to the emergency department if symptoms worsen or persist or if there are any questions or concerns that arise at home. Administered Medications: 01:20 Drug: Dexamethasone IM 10 mg IM once Route: IM; Site: right deltoid; jb4 01:34 Follow up: Response: No adverse reaction jb4 01:21 Drug: Rocephin (cefTRIAXone) IM 1 grams IM once Route: IM; Site: right gluteus; jb4 :34 Follow up: Response: No adverse reaction jb4 Disposition: 03:15 Co-signature as Attending Physician, Jose Alberto Pérez MD I agree with the assessment sp4 and plan of care. I reviewed the patient's care provided by the Advanced Practice Provider and agree with the diagnosis and treatment plan. Disposition Summary: 02/19/24 01:06 Discharge Ordered Notes: Location: Home sb4 Problem: new sb4 Symptoms: have improved sb4 Condition: Stable sb4 Diagnosis - Otitis media, unspecified, left ear sb4 Followup: sb4 - With: Emergency Department - When: As needed - Reason: Trouble breathing, Worsening of condition Discharge Instructions: - Discharge Summary Sheet sb4 - Otitis Media, Adult sb4 Forms: - Antibiotic Education sb4 - Patient Portal Instructions sb4 - Leadership Thank You Letter sb4 Prescriptions: - Augmentin 875-125 mg Oral Tablet - take 1 tablet ORAL route every 12 hours for 10 days; 20 tablet; Refills: 0, sb4 Product Selection Permitted Signatures: Tra Pedraza RN RN cain4 Lilly Yost PA-C PA-C sb4 Jose Alberto Pérez MD MD sp4
[2024-02-19 02:04] VITALS: BP 148/103; TEMP 97.9; O2SAT 98
== END 2024-02-19 01:34 | disposition home or self-care (01) ==
LOC: ER 00:45
DX: H66.92 Otitis media, unspecified, left ear (principal)
CPT/HCPCS: 96372; 99284; J1100; J0696